=== PATIENT | male | born 1970 | race Caucasian/White ===

== ENCOUNTER → 2017-12-25 | Outpatient (CLI) | payer OTHER ==
[~2017-12-25] MED LIST: ALBU8.5H2 IH; Atorvastatin Calcium PO; DEXL60CA PO; DULO60CA6 PO; ESOM20CA PO; ETOD500T2 PO; FENO145T20 PO; FLUT1DIS2 IH; LISD60CA PO; LISI10TA2 PO; MELO-195 PO; MELO-198 PO; NEXIUM 22.3 MG PO; NF-ESOM40C PO; OXYC-197 PO; PANT40TA2 PO; PREG100C PO; SUCR1TAB36 PO; TEMA30CA PO; TOPI25CA6 PO
== END ==
LOC: CARD 12:58
PROVIDERS: ATTEND Internal Medicine Cardiovascular Disease
DX: R07.89 Other chest pain (principal); R06.09 Other forms of dyspnea; I10 Essential (primary) hypertension; E78.5 Hyperlipidemia, unspecified; E66.9 Obesity, unspecified; I34.0 Nonrheumatic mitral (valve) insufficiency
CPT/HCPCS: 93306

== ENCOUNTER → 2019-03-09 | Outpatient (CLI) | payer OTHER ==
[~2019-03-09] MED LIST changes: -FENO145T20 PO; +FENO145T37 PO; -OXYC-197 PO; +OXYC1TAB87 PO
== END ==
LOC: CARD 10:11
PROVIDERS: ATTEND Physician Assistant
DX: R07.89 Other chest pain (principal); R06.09 Other forms of dyspnea; I10 Essential (primary) hypertension; E78.5 Hyperlipidemia, unspecified; K21.9 Gastro-esophageal reflux disease without esophagitis
CPT/HCPCS: 93225; 93226; 93306

== ENCOUNTER 2020-04-19 14:34 | Emergency (ER) | payer OTHER ==
[~2020-04-19] VITALS: Ht 180 cm; Wt 95.3 kg
[~2020-04-19 14:34] MED LIST changes: +FENO145T26 PO; -FENO145T37 PO
[2020-04-19 14:45] VITALS: BP 118/87
--- NOTE | 2020-04-19 15:00 | ED Upper Extremity ---
General Chief Complaint: Upper Extremity Stated Complaint: LEFT ARM INJ Nursing Triage Note: PT AMBULATES TO FT1 WITH C/O L ARM INJURY. PT REPORTS ON 04/13/20 WHILE LIFTING LUMBER, SHE FELT A "POP." PT REPORTS BRUISING ET SWELLING SINCE INJURY. A&OX4. Nursing Sepsis Screen: No Definite Risk Source: patient Exam Limitations: no limitations History of Present Illness Date Seen by Provider: Apr 19, 2020 Time Seen by Provider: 14:53 Initial Comments To ER with pain and bruising as well as swelling to the distal upper arm and most of the ulnar side of the forearm on the left. This began on 04/13 when he was lifting some lumber and felt a popping sensation near his elbow. Yesterday he again lifted and was supinating his hand when he noticed increased pain and subsequent bruising and swelling. Onset: just prior to arrival Severity: moderate Pain/Injury Location: left elbow, left forearm Method of Injury: other Modifying Factors: Worse With Movement Allergies and Home Medications Allergies Coded Allergies: No Known Drug Allergies (Unverified , 09/27/16) Home Medications Dexlansoprazole 60 Mg bp, 60 MG PO DAILY Prescribed by: INEZ ONEIL on 10/03/16 1011 Etodolac 500 Mg Tab.er.24h, 500 MG PO BID, (Reported) Fenofibrate Nanocrystallized 145 Mg Tablet, 145 MG PO DAILY, (Reported) Lisinopril 10 Mg Tablet, 10 MG PO DAILY, (Reported) Oxycodone HCl/Acetaminophen 1 Each Tablet, 1 EACH PO Q4H Prescribed by: INEZ ONEIL on 10/03/16 1011 Pantoprazole Sodium 40 Mg Tablet.dr, 40 MG PO DAILY, (Reported) Sucralfate 1 Gm Tablet, 1 GM PO QID Prescribed by: INEZ ONEIL on 10/03/16 1011 Topiramate 25 Mg Cap.sprink, 50 MG PO BID, (Reported) Patient Home Medication List Home Medication List Reviewed: Yes Review of Systems Constitutional: weight gain EENTM: see HPI Respiratory: no symptoms reported Cardiovascular: no symptoms reported Genitourinary: no symptoms reported Musculoskeletal: see HPI Skin: no symptoms reported Psychiatric/Neurological: No Symptoms Reported Past Bgdzkak-Vfgigs-Gnfhol Hx Patient Social History Alcohol Use: Denies Use Recreational Drug Use: No Smoking Status: Never a Smoker 2nd Hand Smoke Exposure: No Recent Foreign Travel: No Contact w/Someone Who Travel: No Recent Infectious Disease Expo: No Recent Hopitalizations: No Immunizations Up To Date Tetanus Booster (TDap): Unknown Date of Influenza Vaccine: Aug 10, 2015 Seasonal Allergies Seasonal Allergies: No Past Medical History Surgeries: Yes (LITHOTRIPSY/CYSTOSCOPY/URETERAL STENTS, ROTATOR CUFF) Bladder Surgery, Renal Respiratory: No Cardiac: Yes High Cholesterol, Hypertension Neurological: No Reproductive Disorders: No Sexually Transmitted Disease: No HIV/AIDS: No Kidney Stones Gastrointestinal: Yes Gastroesophageal Reflux, Diverticulosis, Esophagitis, Hiatal Hernia Musculoskeletal: Yes (PAIN IN KNEES AND FEET) Fibromyalgia Endocrine: No Loss of Vision: Denies Hearing Impairment: Denies Cancer: No Psychosocial: No Sleep Difficulties Integumentary: No Blood Disorders: No Adverse Reaction/Blood Tranf: No Family Medical History Gastroesophageal reflux disease 19 MOTHER G8 BROTHER Refl Physical Exam Vital Signs Vital Signs - First Documented 04/19/20 14:45 Temp 36.3 Pulse 90 Resp 18 B/P (MAP) 118/87 (97) Pulse Ox 98 O2 Delivery Room Air Capillary Refill : Less Than 3 Seconds Height, Weight, BMI Height: 5'11.00" Weight: 212lbs. 6.0oz. 96.274052mt; 29.00 BMI Method:Stated General Appearance: WD/WN, no apparent distress Neck: non-tender, full range of motion Cardiovascular: regular rate, rhythm, no edema Respiratory: no respiratory distress, no accessory muscle use Elbow/Forearm: Left, ecchymosis, swelling (increased pain with resisted supination and flexion at the elbow. ) Wrist: Yes normal inspection, Yes non-tender Neurologic/Psychiatric: alert, normal mood/affect, oriented x 3 Skin: normal color, warm/dry Progress/Results/Core Measures Results/Orders My Orders Orders - ELIEL RANKIN APRN Venous Upper Ext Lt (04/19/20 14:52) Vital Signs/I&O 04/19/20 14:45 Temp 36.3 Pulse 90 Resp 18 B/P (MAP) 118/87 (97) Pulse Ox 98 O2 Delivery Room Air Blood Pressure Mean: 97 Departure Impression Primary Impression: Tendinopathy of left elbow Additional Impression: Muscle tear Disposition: 01 HOME, SELF-CARE Condition: Stable Departure-Patient Inst. Decision time for Depature: 14:59 Referrals: GEORGIA GUTIERREZ MD (PCP/Family) Primary Care Physician LEAH RUIZ MD Patient Instructions: NO INSTRUCTIONS GIVEN Add. Discharge Instructions: Ice pack to the area. The medication as directed. Follow-up with Dr. Ruiz, call today to make an appointment to be seen later this week. All discharge instructions reviewed with patient and/or family. Voiced understanding. ELIEL RANKIN COMMERCIAL FRONT LOAD OPERATOR Apr 19, 2020 15:00
--- NOTE | 2020-04-19 15:43 | Diagnostic Imaging Report ---
PROCEDURE: US venous upper extremity left. TECHNIQUE: Multiple realtime grayscale images were obtained of left upper extremity in various projections. Additional spectral analysis and color Doppler duplex images were also obtained. INDICATION: Left arm injury with left arm pain. COMPARISON: None. FINDINGS: The deep veins of the left upper extremity (subclavian, jugular, axillary, and brachial veins) show no evidence of intraluminal thrombosis, with normal compressibility, color flow, and augmentation. The radial and ulnar veins appear patent as well. The superficial veins (basilic and cephalic veins) are patent. IMPRESSION: No deep venous thrombosis seen in the left upper extremity veins. Findings discussed with Melvin Evans APRN, by the data entry processor, following the exam. Dictated by: Dictated on workstation # [id number]
== END 2020-04-19 15:30 | disposition home or self-care (01) ==
LOC: EDUNIT# 14:34 → ER 14:37
DX: S56.912A Strain of unspecified muscles, fascia and tendons at forearm level, left arm, initial encounter (principal); M77.9 Enthesopathy, unspecified; I10 Essential (primary) hypertension; K21.0 Gastro-esophageal reflux disease with esophagitis; E78.00 Pure hypercholesterolemia, unspecified; X50.1XXA Overexertion from prolonged static or awkward postures, initial encounter
CPT/HCPCS: 93971; 99283; A4565

== ENCOUNTER 2021-06-17 10:40 | Day surgery (SDC) | payer OTHER ==
[~2021-06-17] VITALS: Ht 180 cm; Wt 100.0 kg
[~2021-06-17 10:40] MED LIST changes: -LISI10TA2 PO; +LISI10TA25 PO
[2021-06-17] MEDS ORDERED: morphine INJ 10 MG/ML 1ML (SYR OR VIAL) ONE (10:51)
[2021-06-17] MEDS ORDERED: morphine INJ 10 MG/ML 1ML (SYR OR VIAL) IV STA (10:52)
--- NOTE | 2021-06-17 10:55 | ED Chest Pain ---
General Stated Complaint: CHEST PAIN Source: patient Exam Limitations: no limitations History of Present Illness Date Seen by Provider: Jun 17, 2021 Time Seen by Provider: 10:53 Initial Comments To ER with reports of chest pain that began about 9 AM this morning. He awakened this morning not feeling well. He was noted by EMS upon their arrival about 1015 to be very diaphoretic. He was given 324 mg of aspirin and 1 sublingual nitroglycerin which dropped his blood pressure from 160 down to 110. He was then given 2 doses of fentanyl. Still reports chest tightness rated at 4 out of 10. No history of coronary disease. Does have a history of hypertension. reports that over the past 6 weeks he has had some exertional dyspnea and diaphoresis. Reportedly, his watch told him that his heart rate was 179 earlier this morning and he did feel as though it was beating very fast. Timing/Duration: changing over time Severity/Quality: moderate Location: central Radiation: no radiation Activities at Onset: none Modifying Factors: worse with rest ASA po MALT HOUSE SUPERVISOR: No NTG SL MALT HOUSE SUPERVISOR: No Associated Symptoms: shortness of breath Allergies and Home Medications Allergies Coded Allergies: No Known Drug Allergies (Unverified , 09/27/16) Home Medications Dexlansoprazole 60 Mg Cap.bp, 60 MG PO DAILY Prescribed by: INEZ ONEIL on 10/03/16 1011 Etodolac 500 Mg Tab.er.24h, 500 MG PO BID, (Reported) Fenofibrate Nanocrystallized 145 Mg Tablet, 145 MG PO DAILY, (Reported) Lisinopril 10 Mg Tablet, 10 MG PO DAILY, (Reported) Oxycodone HCl/Acetaminophen 1 Each Tablet, 1 EACH PO Q4H Prescribed by: INEZ ONEIL on 10/03/16 1011 Pantoprazole Sodium 40 Mg Tablet.dr, 40 MG PO DAILY, (Reported) Sucralfate 1 Gm Tablet, 1 GM PO QID Prescribed by: INEZ ONEIL on 10/03/16 1011 Topiramate 25 Mg Cap.sprink, 50 MG PO BID, (Reported) Patient Home Medication List Home Medication List Reviewed: Yes Review of Systems Review of Systems Constitutional: see HPI EENTM: No Symptoms Reported Respiratory: No Symptoms Reported Cardiovascular: See HPI, Chest Pain Gastrointestinal: No Symptoms Reported Genitourinary: No Symptoms Reported Musculoskeletal: no symptoms reported Skin: no symptoms reported Psychiatric/Neurological: No Symptoms Reported Endocrine: No Symptoms Reported Hematologic/Lymphatic: No Symptoms Reported Past Rlgfydu-Bhvomq-Tdzqfo Hx Immunizations Up To Date Tetanus Booster (TDap): Unknown Seasonal Allergies Seasonal Allergies: No Past Medical History Surgeries: Yes (LITHOTRIPSY/CYSTOSCOPY/URETERAL STENTS, ROTATOR CUFF) Bladder Surgery, Renal Respiratory: No Cardiac: Yes High Cholesterol, Hypertension Neurological: No Reproductive Disorders: No Sexually Transmitted Disease: No HIV/AIDS: No Kidney Stones Gastrointestinal: Yes Gastroesophageal Reflux, Diverticulosis, Esophagitis, Hiatal Hernia Musculoskeletal: Yes (PAIN IN KNEES AND FEET) Fibromyalgia Endocrine: No Loss of Vision: Denies Hearing Impairment: Denies Cancer: No Psychosocial: No Sleep Difficulties Integumentary: No Blood Disorders: No Adverse Reaction/Blood Tranf: No Family Medical History Gastroesophageal reflux disease 19 MOTHER G8 BROTHER Refl Physical Exam Vital Signs Vital Signs - First Documented Capillary Refill : Height, Weight, BMI Height: 5'11.00" Weight: 212lbs. 6.0oz. 96.660249ji; 29.00 BMI Method:Stated General Appearance: No Apparent Distress, WD/WN, Other (Alert and oriented very diaphoretic. Heart rate 115 sinus. Blood pressure 140/90.) Respiratory: No Accessory Muscle Use, No Respiratory Distress Gastrointestinal: Normal Bowel Sounds, Non Tender, Soft Extremity: Normal Capillary Refill, Normal Inspection Neurologic/Psychiatric: Alert, Oriented x3 Skin: Normal Color, Warm/Dry Progress/Results/Core Measures Results/Orders Lab Results Laboratory Tests Test 06/17/21 10:40 06/17/21 11:10 Range/Units White Blood Count 6.7 4.3-11.0 10^3/uL Red Blood Count 5.72 H 4.30-5.52 10^6/uL Hemoglobin 17.0 13.3-17.7 g/dL Hematocrit 49 40-54 % Mean Corpuscular Volume 85 80-99 fL Mean Corpuscular Hemoglobin 30 25-34 pg Mean Corpuscular Hemoglobin Concent 35 32-36 g/dL Red Cell Distribution Width 15.2 H 10.0-14.5 % Platelet Count 298 130-400 10^3/uL Mean Platelet Volume 10.1 9.0-12.2 fL Immature Granulocyte % (Auto) 0 % Neutrophils (%) (Auto) 66 42-75 % Lymphocytes (%) (Auto) 24 12-44 % Monocytes (%) (Auto) 8 0-12 % Eosinophils (%) (Auto) 1 0-10 % Basophils (%) (Auto) 0 0-10 % Neutrophils # (Auto) 4.5 1.8-7.8 10^3/uL Lymphocytes # (Auto) 1.6 1.0-4.0 10^3/uL Monocytes # (Auto) 0.5 0.0-1.0 10^3/uL Eosinophils # (Auto) 0.1 0.0-0.3 10^3/uL Basophils # (Auto) 0.0 0.0-0.1 10^3/uL Immature Granulocyte # (Auto) 0.0 0.0-0.1 10^3/uL Sodium Level 141 135-145 MMOL/L Potassium Level 3.6 3.6-5.0 MMOL/L Chloride Level 107 98-107 MMOL/L Carbon Dioxide Level 17 L 21-32 MMOL/L Anion Gap 17 H 5-14 MMOL/L Blood Urea Nitrogen 25 H 7-18 MG/DL Creatinine 1.33 H 0.60-1.30 MG/DL Estimat Glomerular Filtration Rate 56 BUN/Creatinine Ratio 19 Glucose Level 111 H 70-105 MG/DL Calcium Level 10.6 H 8.5-10.1 MG/DL Corrected Calcium 8.5-10.1 MG/DL Magnesium Level 2.1 1.6-2.4 MG/DL Total Bilirubin 0.4 0.1-1.0 MG/DL Aspartate Amino Transf (AST/SGOT) 38 H 5-34 U/L Alanine Aminotransferase (ALT/SGPT) 45 0-55 U/L Alkaline Phosphatase 67 40-136 U/L Myoglobin 95.1 H 10.0-92.0 NG/ML Troponin I < 0.028 <0.028 NG/ML Total Protein 8.5 H 6.4-8.2 GM/DL Albumin 4.9 H 3.2-4.5 GM/DL Prothrombin Time 13.8 12.2-14.7 SEC INR Comment 1.0 0.8-1.4 Activated Partial Thromboplast Time 26 24-35 SEC My Orders Orders - ELIEL RANKIN COOK LARDER Cbc With Automated Diff (06/17/21 10:52) Magnesium (06/17/21 10:52) Chest 1 View, Ap/Pa Only (06/17/21 10:52) Ekg Tracing (06/17/21 10:52) Comprehensive Metabolic Panel (06/17/21 10:52) Myoglobin Serum (06/17/21 10:52) Protime With Inr (06/17/21 10:52) Partial Thromboplastin Time (06/17/21 10:52) O2 (06/17/21 10:52) Monitor-Rhythm Ecg Trace Only (06/17/21 10:52) Lipid Panel (06/18/21 06:00) Ed Iv/Invasive Line Start (06/17/21 10:52) BNP (06/17/21 10:52) Fibrin Degradation Products (06/17/21 10:52) Troponin I (06/17/21 10:52) Morphine Injection (Morphine Injection (06/17/21 10:52) Nitro Drip 86122 Mcg/D5w (Nitroglycerin (06/17/21 11:30) Vital Signs/I&O 06/17/21 06/17/21 06/17/21 10:40 10:40 10:40 Temp 36.6 Pulse 130 Resp 20 B/P (MAP) 143/94 (110) Pulse Ox 97 97 O2 Delivery Nasal Cannula Nasal Cannula Nasal Cannula O2 Flow Rate 3.00 3.00 3.0 Departure Communication (Admissions) EKG shows sinus tach rate of 115, normal intervals no ectopy no ST elevation 1131-still having chest pain despite 2 doses of fentanyl, 1 dose of morphine 4 mg. His heart rate has fallen to 98. He currently rates his chest pressure that radiates into his jaw at 4 out of 10. Hemodynamically stable. Alert and oriented. Still diaphoretic. EKG is unremarkable and troponin is negative but his presentation is very concerning for an acute coronary syndrome. I spoke with Dr. Chun, we will take the patient to [facility]. I am starting a nit roglycerin drip in the meantime. Impression Primary Impression: Chest pain Disposition: ADMITTED INPATIENT Condition: Stable Admissions Decision to Admit Reason: Admit from ER (General) Decision to Admit/Date: Jun 17, 2021 Time/Decision to Admit Time: 11:32 Departure-Patient Inst. Referrals: SELF,GEORGIA GONZALEZ (PCP/Family) Primary Care Physician ELIEL RANKIN APRN Jun 17, 2021 10:55
[2021-06-17 10:59] LABS: BASOPHILS % (AUTO) 0 % (0-10); EOSINOPHILS # (AUTO) 0.1 10^3/uL (0.0-0.3); EOSINOPHILS % (AUTO) 1 % (0-10); HEMATOCRIT 49 % (40-54); LYMPHOCYTES # (AUTO) 1.6 10^3/uL (1.0-4.0); LYMPHOCYTES % (AUTO) 24 % (12-44); MEAN CORPUSCULAR HEMOGLOBIN 30 pg (25-34); MEAN CORPUSCULAR HGB CONC 35 g/dL (32-36); MEAN CORPUSCULAR VOLUME 85 fL (80-99); MEAN PLATELET VOLUME 10.1 fL (9.0-12.2); MONOCYTES # (AUTO) 0.5 10^3/uL (0.0-1.0); MONOCYTES % (AUTO) 8 % (0-12); NEUTROPHILS # (AUTO) 4.5 10^3/uL (1.8-7.8); NEUTROPHILS % (AUTO) 66 % (42-75); PLATELET COUNT 298 10^3/uL (130-400); WHITE BLOOD COUNT 6.7 10^3/uL (4.3-11.0)
[2021-06-17 11:08] LABS: ALBUMIN 4.9 GM/DL (3.2-4.5); CHLORIDE 107 MMOL/L (98-107); POTASSIUM 3.6 MMOL/L (3.6-5.0); SODIUM 141 MMOL/L (135-145)
[2021-06-17 11:10] LABS: CALCIUM 10.6 MG/DL (8.5-10.1)
[2021-06-17 11:11] LABS: GLUCOSE 111 MG/DL (70-105); TOTAL PROTEIN 8.5 GM/DL (6.4-8.2)
[2021-06-17 11:12] LABS: CARBON DIOXIDE 17 MMOL/L (21-32)
[2021-06-17 11:13] LABS: BILIRUBIN,TOTAL 0.4 MG/DL (0.1-1.0)
[2021-06-17 11:14] LABS: ALKALINE PHOSPHATASE 67 U/L (40-136); CREATININE SERUM 1.33 MG/DL (0.60-1.30); GFR ESTIMATED 56
[2021-06-17 11:16] LABS: BUN/CREATININE RATIO 19
[2021-06-17 11:17] LABS: ALANINE AMINOTRANSFERASE 45 U/L (0-55); MAGNESIUM 2.1 MG/DL (1.6-2.4)
--- NOTE | 2021-06-17 11:27 | Diagnostic Imaging Report ---
INDICATION: Chest pain. TIME OF EXAM: 11:07 AM Correlation is made with prior chest 12/29/2014. FINDINGS: The heart size is normal. The pulmonary vascularity is unremarkable. The lungs are clear. No infiltrate, effusion or pneumothorax is detected. IMPRESSION: No acute cardiopulmonary process is detected. Dictated by: Dictated on workstation # [id number]
[2021-06-17 11:29] LABS: PROTHROMBIN TIME PATIENT 13.8 SEC (12.2-14.7)
[2021-06-17] MEDS: NITRO DRIP 25000 MCG/D5W 250 ML IV SCH (11:47)
[2021-06-17] MEDS ORDERED: fentaNYL INJ 100 MCG/2 ML AMP ONE (12:10)
[2021-06-17] MEDS ORDERED: MIDAZOLAM 5 MG/5 ML (VERSED) VIAL ONE (12:11)
[2021-06-17] MEDS ORDERED: HEParin 1000 UNIT/ML (10ML VIAL) FOR BOLUS ONE (12:11)
[2021-06-17] MEDS ORDERED: NS IV 1000 ML 1,000 ML ONE (12:11)
[2021-06-17] MEDS ORDERED: LIDOCAINE 1% INJ 20 ML 20 ML VIAL ONE (12:11)
[2021-06-17] MEDS ORDERED: HEParin (CATH LAB) 2,000 ML IV ONE (12:11)
[2021-06-17] MEDS ORDERED: NITRO DRIP 25000 MCG/D5W 0 ML IV ONE (12:11)
--- NOTE | 2021-06-17 12:35 | Cardiac Procedure Note-CS/ASA ---
Pre-Procedure Note Pre-Op Procedure Note H&P Reviewed The H&P was reviewed, patient examined and no changes noted. Date H&P Reviewed: Jun 17, 2021 Time H&P Reviewed: 12:35 Conscious Sedation Pre-Proced Time 12:35 ASA Score 4 For ASA 3 and 4: Consider anesthesia and medical clearance. Also, for patients with a history of failed moderate sedation consider anesthesia. Airway Lungs Heart ASA score ASA 1: a normal healthy patient ASA 2: a patient with a mild systemic disease (mid diabetes, controlled hypertension, obesity ASA 3: a patient with a severe systemic disease that limits activity (angina, COPD, prior Myocardial infarction) ASA 4: a patient with an incapacitating disease that is a constant threat to life (CHF, renal failure) ASA 5: a moribund patient not expected to survive 24 hrs. (ruptured aneurysm) ASA 6: a declared brain- patient whose organs are being harvested. For emergent operations, add the letter E after the classification Mallampati Classification Grade 2 Sedation Plan Analgesia, Amnesia, Plan communicated to team members, Discussed options with patient/fam, Discussed risks with patient/fam The patient is an appropriate candidate to undergo the planned procedure, sedation, and anesthesia. The patient immediately re-assessed prior to indication. ANNAMARIE SIMMONS MD FACP FAC CCDS Jun 17, 2021 12:35
[2021-06-17] MEDS ORDERED: FAMOTIDINE 20 MG (PEPCID) TABLET PO ONE (13:00)
[2021-06-17] MEDS ORDERED: PANTOPRAZOLE 40 MG (PROTONIX) TAB PO ONE (13:00)
[2021-06-17] MEDS ORDERED: PATIENT MAY USE OWN MEDS, ALL PO SCH (13:00)
--- NOTE | 2021-06-17 13:07 | Cardiology History & Physical ---
HPI-Cardiology Cardiology H&P Date of Admission 06/17/21 Primary Care Physician Sam Barone MD Attending Physician Tommie Page MD MA FACP [facility] Consulting Physician PUNEET CC: Chest pain HPI: 51 yo man with sudden onset of chest pain, midsternal, pressure-like, radiating to the back, associated with diaphoresis, intermittently present for several weeks but much worse today. 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 Partial relief with s/l NTG in the ambulance. Continuing chest pain and diaphoresis and high suspicion of acute coronary syndrome led to urgent cardiac cath after all issues were reviewed with him and he provided informed consent Review of Systems-Cardiology Review of Systems Constitutional: As described under HPI Eyes: No vision change Ears/Nose/Throat: No ear discharge, No nasal drainage, No recent hearing loss Respiratory: As described under HPI Cardiovascular: As described under HPI Gastrointestinal: No diarrhea, No nausea, No vomiting Genitourinary: No dysuria, No hematuria, No urine frequency changes Musculoskeletal: No back pain, No joint pain Skin: No rash, No ulcerations Psychiatric/Neurological: No seizure, No focal weakness, No syncope Hematologic: No bleeding abnormalities IXY-Jnqlbg-Qrlzue Hx Patient Social History 2nd Hand Smoke Exposure: No Have you traveled recently?: No Alcohol Use?: No Pt feels they are or have been: No Immunizations Up To Date Tetanus Booster (TDap): Unknown Date of Influenza Vaccine: Aug 10, 2015 Past Medical History PMH As described under Assessment. Family Medical History Family History: Gastroesophageal reflux disease 19 MOTHER G8 BROTHER Refl Allergies and Home Medications Allergies Coded Allergies: No Known Drug Allergies (Unverified , 09/27/16) Home Medications Dexlansoprazole 60 Mg bp, 60 MG PO DAILY Prescribed by: INEZ ONEIL on 10/03/16 1011 Etodolac 500 Mg Tab.er.24h, 500 MG PO BID, (Reported) Fenofibrate Nanocrystallized 145 Mg Tablet, 145 MG PO DAILY, (Reported) Lisinopril 10 Mg Tablet, 10 MG PO DAILY, (Reported) Oxycodone HCl/Acetaminophen 1 Each Tablet, 1 EACH PO Q4H Prescribed by: INEZ ONEIL on 10/03/16 1011 Pantoprazole Sodium 40 Mg Silas.dr, 40 MG PO DAILY, (Reported) Sucralfate 1 Gm Tablet, 1 GM PO QID Prescribed by: INEZ ONEIL on 10/03/16 1011 Topiramate 25 Mg Cap.sprink, 50 MG PO BID, (Reported) Patient Home Medication List Home Medication List Reviewed: Yes Physical Exam-Cardiology Physical Exam Vital Signs/I&O 06/17/21 06/17/21 06/17/21 06/17/21 10:40 10:40 10:40 11:47 Temp 36.6 Pulse 130 96 Resp 20 B/P (MAP) 143/94 (110) 138/95 Pulse Ox 97 97 O2 Delivery Nasal Cannula Nasal Cannula Nasal Cannula O2 Flow Rate 3.00 3.00 3.0 06/17/21 12:22 Pulse 101 Resp 20 B/P (MAP) 128/81 Pulse Ox 97 Capillary Refill : Less Than 3 Seconds Constitutional: AAO x 3, well-developed, well-nourished HEENT: EOMI, hearing is well preserved; No xanthelasmas are seen Neck: carotid pulses are 2 + bilaterally, with good upstrokes Respiratory: No accessory muscle use; other (good, bilateral air entry) Cardiovascular: regular rate-rhythm, S1 and S2, systolic murmur (soft MASON at card base) Gastrointestinal: No tender; soft; No guarding, No rebound; audible bowel sounds Extremities: No clubbing, No cyanosis, No significant edema Neurologic/Psychiatric: oriented x 3, other (moves all limbs equally) Skin: No rash on exposed areas, No ulcerations on exposed areas Data Review Labs Laboratory Tests 06/17/21 10:40: White Blood Count 6.7, Red Blood Count 5.72H, Hemoglobin 17.0, Hematocrit 49, Mean Corpuscular Volume 85, Mean Corpuscular Hemoglobin 30, Mean Corpuscular Hemoglobin Concent 35, Red Cell Distribution Width 15.2H, Platelet Count 298, Mean Platelet Volume 10.1, Immature Granulocyte % (Auto) 0, Neutrophils (%) (Auto) 66, Lymphocytes (%) (Auto) 24, Monocytes (%) (Auto) 8, Eosinophils (%) (Auto) 1, Basophils (%) (Auto) 0, Neutrophils # (Auto) 4.5, Lymphocytes # (Auto) 1.6, Monocytes # (Auto) 0.5, Eosinophils # (Auto) 0.1, Basophils # (Auto) 0.0, Immature Granulocyte # (Auto) 0.0, Sodium Level 141, Potassium Level 3.6, Chloride Level 107, Carbon Dioxide Level 17L, Anion Gap 17H, Blood Urea Nitrogen 25H, Creatinine 1.33H, Estimat Glomerular Filtration Rate 56, BUN/Creatinine Ratio 19, Glucose Level 111H, Calcium Level 10.6H, Corrected Calcium , Magnesium Level 2.1, Total Bilirubin 0.4, Aspartate Amino Transf (AST/SGOT) 38H, Alanine Aminotransferase (ALT/SGPT) 45, Alkaline Phosphatase 67, Myoglobin 95.1H, Troponin I < 0.028, B-Type Natriuretic Peptide < 10.0, Total Protein 8.5H, Albumin 4.9H 06/17/21 11:10: Prothrombin Time 13.8, INR Comment 1.0, Activated Partial Thromboplast Time 26, D-Dimer 0.31 06/17/21 11:26: SARS-CoV-2 RNA (RT-PCR) Not Detected Laboratory Tests 06/17/21 10:40 A/P-Cardiology Assessment/Admission Diagnosis Chest pain suggestive of unstable angina at presentation, but shown to be non- cardiac after card cath of 06/17/21 - Card cath of 06/17/21: No significant CAD, somewhat sluggish cor flow, normal LVEDP, normal LVEF and wall motion Hypertension, by history Hyperlipidemia, by history Renal insufficiency of unknown chronicity Admission Status: Observation Discussion and Recomendations * I discussed his cath findings in detail with him and his * Medical consult with the Hospitalist Svlinda (Dr Alvarado) with whom I have already spoken earlier today * Continue iv fluids, given evidence of renal insuff (probably related to volume depletion) * Monitor labs Clinical Quality Measures AMI/AHF: ASA po Prior to arrival: TOMMIE Queen MD [facility] CCDS Jun 17, 2021 13:07
[2021-06-17] MEDS: NS IV 1000 ML 1,000 ML IV SCH (13:44)
[2021-06-17 16:44] VITALS: BP 119/86
[2021-06-17] MEDS ORDERED: IOHEXOL 350 MG/ML 100 ML (OMNIPAQUE 350) VIAL IV ONE (17:45)
[2021-06-17] MEDS ORDERED: HOLD METFORMIN - RECEIVED CONTRAST 20 ML VIAL IV SCH (17:45)
[2021-06-17] MEDS ORDERED: NS 100 ML (IVPB) BAG IV ONE (17:45)
--- NOTE | 2021-06-17 18:37 | Diagnostic Imaging Report ---
PROCEDURE: CT abdomen and pelvis without contrast. TECHNIQUE: Multiple contiguous axial images were obtained through the abdomen and pelvis without the use of intravenous contrast. Auto Exposure Controls were utilized during the CT exam to meet ALARA standards for radiation dose reduction. INDICATION: Chest and abdomen pain. COMPARISON: 08/30/2016. FINDINGS: The lungs are described in a separate report. The liver demonstrates no focal lesion. Cholecystectomy clips are noted. The spleen appears normal. The pancreas is unremarkable. The adrenal glands appear normal. There is contrast excreting from the kidneys but there is no hydronephrosis. No definite mass is seen. The urinary bladder is moderately distended and contrast-filled with no filling defect present. The bowel loops are nondistended without obstruction. There is moderate stool in the colon. No free fluid is seen in the abdomen. No free air is seen. The appendix is normal. No acute osseous abnormality is seen. There is moderate soft tissue edema in the right inguinal region. There may be a small hematoma measuring about 2 cm. IMPRESSION: 1. Moderate soft tissue edema in the right inguinal region. There may be a small associated hematoma. 2. Moderate stool in the colon. No bowel obstruction is seen. Dictated by: Dictated on workstation # [id number]
--- NOTE | 2021-06-17 18:39 | Diagnostic Imaging Report ---
PROCEDURE: CT angiography of the chest with contrast. TECHNIQUE: Multiple contiguous axial images were obtained through the chest after uneventful bolus administration of intravenous contrast. 3D reconstructed CTA MIP acquisitions were also performed. Auto Exposure Controls were utilized during the CT exam to meet ALARA standards for radiation dose reduction. INDICATION: Chest pain. Recent heart catheter. COMPARISON: 12/30/2014. FINDINGS: The heart is normal in size. There is no pericardial effusion. There is no mediastinal adenopathy. The aorta appears normal in caliber. The pulmonary arteries are diagnostic to the segmental level. No filling defect is seen to indicate a pulmonary embolus. There are airspace opacities in the medial right lower lobe with scattered groundglass opacities in the dependent lungs bilaterally. There is no pleural effusion or pneumothorax. No central endobronchial lesion is seen. No acute osseous abnormality is seen. Abdominal findings are described separately. IMPRESSION: 1. No pulmonary embolus. 2. Airspace and ground glass opacities in the dependent lungs bilaterally, may be due to infection or atelectasis. Dictated by: Dictated on workstation # [id number]
[2021-06-17 19:37] VITALS: BP 115/76
[2021-06-17] MEDS: FAMOTIDINE 20 MG (PEPCID) TABLET PO SCH (20:01)
[2021-06-17 20:55] LABS: AMPHETAMINE SCREEN, URINE POSITIVE (NEGATIVE); BARBITURATE SCREEN URINE NEGATIVE (NEGATIVE); BENZODIAZEPINES SCREEN URINE POSITIVE (NEGATIVE); CANNABINOID SCREEN, URINE NEGATIVE (NEGATIVE); COCAINE SCREEN URINE NEGATIVE (NEGATIVE); METHADONE STAT NEGATIVE (NEGATIVE); METHAMPHETAMINE SCREEN URINE S NEGATIVE (NEGATIVE); OPIATE SCREEN URINE POSITIVE (NEGATIVE); OXYCODONE STAT NEGATIVE (NEGATIVE); PROPOXYPHENE STAT NEGATIVE (NEGATIVE); TRICYCLIC ANTIDEPRESSANTS SCRE NEGATIVE (NEGATIVE)
--- NOTE | 2021-06-17 21:27 | Consultation - Hospitalist ---
HPI History of Present Illness: HPI/Chief Complaint Mark Snyder is a 51 year old male patient of [facility] Dr. Barone with PMH HTN, HLD, ADHD, fibromyalgia, who presented with chest pain. He was having chest pain radiating through to his back. It also radiated to his neck. He was also very diaphoretic. He has no history of coronary artery disease. He does not smoke. He occasionally drinks alcohol. He does not use illicit drugs. He was taken to the record label internship with concern for ACS. He was found to have normal coronary arteries. Upon my exam, his chest pain has resolved. He is having right leg numbness. His right groin was the access point for his cath. He has not had any fevers or chills. He denies shortness of breath and cough. Source: patient Exam Limitations: no limitations Date Seen 06/17/21 Attending Physician Tommie Page MD Facp Facc Ccds PCP Sam Barone MD Referring Physician Date of Admission Home Medications & Allergies Home Medications Reviewed patient Home Medication Reconciliation performed by pharmacy medication reconciliations outside plant technician and/or nursing. Patients Allergies have been reviewed. Allergies Allergies Coded Allergies No Known Drug Allergies ([id number]/1/16) Past Apgpthw-Iwtlrf-Guddad Hx Patient Social History Tobacco Use?: No Smoking Status: Never a Smoker Smokeless Tobacco Frequency: Never a User Use of E-Cig and/or Vaping dev: No Substance use?: No Alcohol Use?: Yes Alcohol type: Beer, Hard Liquor Alcohol Frequency: Couple times a week Pt feels they are or have been: No Immunizations Up To Date Date of Influenza Vaccine: Aug 10, 2015 First/Initial COVID19 Vaccinat: DECEMBER [address]: January Tetanus Booster (TDap): Less Than 5 Years Hepatitis A: No Hepatitis B: Yes Seasonal Allergies Seasonal Allergies: No Current Status Advance Directives: No Communicates: Verbally Primary Language: Turkmen Preferred Spoken Language: Turkmen Is interpretation needed?: No Sensory deficits: Vision impairment, Hearing impairment Implanted or Applied Medical D: None Past Medical History Surgeries: Bladder Surgery, Renal High Cholesterol, Hypertension Sexually Transmitted Disease: No HIV/AIDS: No Kidney Stones Gastroesophageal Reflux, Diverticulosis, Esophagitis, Hiatal Hernia Fibromyalgia Loss of Vision: Denies Hearing Impairment: Denies Sleep Difficulties Blood Disorders: No Adverse Reaction/Blood Tranf: No Family Medical History Gastroesophageal reflux disease 17 MOTHER G8 BROTHER Refl Review of Systems Constitutional: no symptoms reported EENTM: no symptoms reported Respiratory: no symptoms reported Cardiovascular: chest pain Gastrointestinal: no symptoms reported Genitourinary: no symptoms reported Musculoskeletal: back pain Skin: no symptoms reported Psychiatric/Neurological: No Symptoms Reported Physical Exam Physical Exam Vital Signs Vital Signs - First Documented Capillary Refill : Less Than 3 Seconds Height, Weight, BMI Height: 5'11.00" Weight: 212lbs. 6.0oz. 96.523250gm; 29.00 BMI Method:Stated General Appearance: No Apparent Distress, WD/WN, Anxious HEENT: PERRL/EOMI, Pharynx Normal Neck: Normal Inspection, Supple Respiratory: Lungs Clear, Normal Breath Sounds, No Respiratory Distress Cardiovascular: Regular Rate, Rhythm, No Edema, No Murmur Gastrointestinal: Normal Bowel Sounds, Soft, Tenderness (epigastric), Other (RUQ tenderness, positive Mota sign) Extremity: Normal Capillary Refill, Normal Inspection, Non Tender, Pedal Edema Neurologic/Psychiatric: Alert, Oriented x3, No Motor/Sensory Deficits Skin: Normal Color, Warm/Dry Results Results/Procedures Labs Laboratory Tests 06/17/21 10:40 Patient resulted labs reviewed. Imaging: Reviewed Imaging Films, Reviewed Imaging Report Assessment/Plan Assessment and Plan Assess & Plan/Chief Complaint Chest pain Left heart cath normal Non-cardiac chest pain COVID negative Echo ordered CT Chest ordered Epigastric pain LFTs normal Add on lipase CT Abdomen Protonix GEORGI vs CKD IV fluids Monitor HTN HLD Fibromyalgia ADHD Hold home meds Diagnosis/Problems Diagnosis/Problems (1) Epigastric pain Status: Acute (2) Chest pain Status: Acute Clinical Quality Measures AMI/AHF: ASA po Prior to arrival: JUSTINO Sequeira MD Jun 17, 2021 21:27
[2021-06-18] MEDS: NS IV 1000 ML 1,000 ML IV SCH ×2 (00:04→09:55)
[2021-06-18 00:10] VITALS: BP 116/75
[2021-06-18 02:12] VITALS: BP 116/75
[2021-06-18 04:11] VITALS: BP 109/76
[2021-06-18 04:19] LABS: BASOPHILS % (AUTO) 1 % (0-10); EOSINOPHILS # (AUTO) 0.2 10^3/uL (0.0-0.3); EOSINOPHILS % (AUTO) 3 % (0-10); HEMATOCRIT 45 % (40-54); HEMOGLOBIN 14.4 g/dL (13.3-17.7); LYMPHOCYTES # (AUTO) 1.2 10^3/uL (1.0-4.0); LYMPHOCYTES % (AUTO) 24 % (12-44); MEAN CORPUSCULAR HEMOGLOBIN 29 pg (25-34); MEAN CORPUSCULAR HGB CONC 32 g/dL (32-36); MEAN CORPUSCULAR VOLUME 91 fL (80-99); MEAN PLATELET VOLUME 10.5 fL (9.0-12.2); MONOCYTES # (AUTO) 0.5 10^3/uL (0.0-1.0); MONOCYTES % (AUTO) 10 % (0-12); NEUTROPHILS # (AUTO) 3.3 10^3/uL (1.8-7.8); NEUTROPHILS % (AUTO) 62 % (42-75); PLATELET COUNT 201 10^3/uL (130-400); WHITE BLOOD COUNT 5.2 10^3/uL (4.3-11.0)
[2021-06-18 04:35] LABS: ALBUMIN 3.8 GM/DL (3.2-4.5)
[2021-06-18 04:38] LABS: TOTAL PROTEIN 6.3 GM/DL (6.4-8.2)
[2021-06-18 04:39] LABS: BILIRUBIN,TOTAL 0.4 MG/DL (0.1-1.0)
[2021-06-18 04:41] LABS: CREATININE SERUM 0.88 MG/DL (0.60-1.30)
[2021-06-18 07:53] VITALS: BP 106/68
[2021-06-18] MEDS: NITRO DRIP 25000 MCG/D5W 250 ML IV SCH (07:58)
[2021-06-18] MEDS ORDERED: polyethylene glycoL POWDER 17 GM (MIRALAX) PACK PO SCH (09:00)
[2021-06-18] MEDS ORDERED: PANTOPRAZOLE 40 MG (PROTONIX) TAB PO SCH (09:00)
[2021-06-18] MEDS ORDERED: DOCUSATE SODIUM 100 MG (COLACE) CAP PO SCH (09:00)
[2021-06-18] MEDS ORDERED: SENNA W/DOCUSATE (SENOKOT S) TABLET PO SCH (09:00)
[2021-06-18] MEDS: FAMOTIDINE 20 MG (PEPCID) TABLET PO SCH (09:43)
[2021-06-18] MEDS ORDERED: SUCRALFATE 1 GM (CARAFATE) TAB PO SCH (11:00)
[2021-06-18] MEDS ORDERED: ACETAMINOPHEN 325 MG TABLET ONE (11:27)
[2021-06-18] MEDS ORDERED: ACETAMINOPHEN 325 MG TABLET PO ONE (11:30)
[2021-06-18 11:50] VITALS: BP 111/70
--- NOTE | 2021-06-18 14:51 | Progress Note - Cardiology ---
Cardiology SOAP Progress Note Subjective: No cp or palp or syncope No shortness of breath No n/v/d No groin or leg numbness, discomfort, or discoloration Feels well Objective: I&O/Vital Signs 06/18/21 06/18/21 06/18/21 06/18/21 04:11 07:00 07:53 09:00 Temp 36.1 36.4 Pulse 63 61 75 Resp 16 22 B/P (MAP) 109/76 (87) 106/68 (81) Pulse Ox 95 98 O2 Delivery Room Air Room Air 06/18/21 06/18/21 11:50 13:00 Temp 36.2 Pulse 70 63 Resp 16 B/P (MAP) 111/70 (84) Pulse Ox 96 O2 Delivery Room Air 06/18/21 00:00 Intake Total 1800 ml Balance 1800 ml Weight (Pounds): 212 Weight (Ounces): 6.0 Weight (Calculated Kilograms): 96.590021 Condition: DP/PT pulses palpable Device Insertion Site: without hematoma Bruising: mild bruising Constitutional: AAO x 3, well-developed, well-nourished Respiratory: No accessory muscle use; other (good, bilateral air entry) Cardiovascular: regular rate-rhythm, S1 and S2, systolic murmur (soft MASON at card base) Gastrointestional: No tender; soft; No guarding, No rebound; audible bowel sounds Extremities: No clubbing, No cyanosis, No significant edema Neurologic/Psychiatric: oriented x 3, other (moves all limbs equally) Skin: No rash on exposed areas, No ulcerations on exposed areas Results/Procedures: Labs Laboratory Tests 06/17/21 20:23: Urine Opiates Screen POSITIVEH, Urine Oxycodone Screen NEGATIVE, Urine Methadone Screen NEGATIVE, Urine Propoxyphene Screen NEGATIVE, Urine Barbiturates Screen NEGATIVE, Ur Tricyclic Antidepressants Screen NEGATIVE, Urine Phencyclidine Screen NEGATIVE, Urine Amphetamines Screen POSITIVEH, Urine Methamphetamines Screen NEGATIVE, Urine Benzodiazepines Screen POSITIVEH, Urine Cocaine Screen NEGATIVE, Urine Cannabinoids Screen NEGATIVE 06/18/21 04:00: White Blood Count 5.2, Red Blood Count 4.94, Hemoglobin 14.4, Hematocrit 45, Mean Corpuscular Volume 91, Mean Corpuscular Hemoglobin 29, Mean Corpuscular Hemoglobin Concent 32, Red Cell Distribution Width 15.5H, Platelet Count 201, Mean Platelet Volume 10.5, Immature Granulocyte % (Auto) 0, Neutrophils (%) (Auto) 62, Lymphocytes (%) (Auto) 24, Monocytes (%) (Auto) 10, Eosinophils (%) (Auto) 3, Basophils (%) (Auto) 1, Neutrophils # (Auto) 3.3, Lymphocytes # (Auto) 1.2, Monocytes # (Auto) 0.5, Eosinophils # (Auto) 0.2, Basophils # (Auto) 0.0, Immature Granulocyte # (Auto) 0.0, Sodium Level 138, Potassium Level 4.0, Chloride Level 108H, Carbon Dioxide Level 21, Anion Gap 9, Blood Urea Nitrogen 20H, Creatinine 0.88, Estimat Glomerular Filtration Rate 91, BUN/Creatinine Ratio 23, Glucose Level 95, Calcium Level 9.0, Corrected Calcium 9.2, Magnesium Level 2.0, Total Bilirubin 0.4, Aspartate Amino Transf (AST/SGOT) 25, Alanine Aminotransferase (ALT/SGPT) 34, Alkaline Phosphatase 54, Total Protein 6.3L, Albumin 3.8, Triglycerides Level 170H, Cholesterol Level 225H, LDL Cholesterol Direct 168H, VLDL Cholesterol 34, HDL Cholesterol 40, Thyroid Stimulating Hormone (TSH) 2.66 Laboratory Tests 06/17/21 10:40 06/18/21 04:00 A/P: Assessment: Chest pain suggestive of unstable angina at presentation, but shown to be non- cardiac after card cath of 06/17/21 - Card cath of 06/17/21: No significant CAD, somewhat sluggish cor flow, normal LVEDP, normal LVEF and wall motion Hypertension, by history Hyperlipidemia, by history Renal insufficiency, likely due to volume depletion, resolved after hydration H/o hiatal hernia and h/o cholecystectomy, followed by Dr Ordaz, per patient report Plan: * I again discussed his cath findings with him and his * I spoke with Dr Alvarado on the phone. He has completed his w/u for noncardiac cp, and recommended antacid meds and f/u with Dr Ordaz for endoscopy * We recommend outpt cardiac f/u * Questions answered Clinical Quality Measures AMI/AHF: ASA po Prior to arrival: ANNAMARIE Queen MD [facility] CCDS Jun 18, 2021 14:51
[2021-06-18] MEDS ORDERED: CLON1TAB13 PO (15:00)
[2021-06-18] MEDS ORDERED: ZOLP10TA PO (15:00)
[2021-06-18] MEDS ORDERED: AMPH30TA2 PO (15:01)
[2021-06-18] MEDS ORDERED: DULO60CA6 PO (15:01)
[2021-06-18] MEDS ORDERED: BUPR-42 PO (15:02)
[2021-06-18] MEDS ORDERED: NABU-95 PO (15:03)
[2021-06-18] MEDS ORDERED: PREG150C PO (15:03)
[2021-06-18] MEDS ORDERED: METO50TA15 PO (15:04)
[2021-06-18] MEDS ORDERED: ROSU20TA2 PO (15:04)
[2021-06-18] MEDS ORDERED: PANT40TA2 PO (15:11)
[2021-06-18] MEDS ORDERED: SUCR1TAB36 PO (15:11)
--- NOTE | 2021-06-18 15:18 | Progress Note - Hospitalist ---
Subjective HPI/CC On Admission Date Seen by Provider: Jun 18, 2021 Time Seen by Provider: 10:45 Mark Snyder is a 51 year old male patient of [facility] Dr. Barone with PMH HTN, HLD, ADHD, fibromyalgia, who presented with chest pain. He was having chest pain radiating through to his back. It also radiated to his neck. He was also very d iaphoretic. He has no history of coronary artery disease. He does not smoke. He occasionally drinks alcohol. He does not use illicit drugs. He was taken to the lift slab operator with concern for ACS. He was found to have normal coronary arteries. Upon my exam, his chest pain has resolved. He is having right leg numbness. His right groin was the access point for his cath. He has not had any fevers or chills. He denies shortness of breath and cough. Subjective/Events-last exam He still has some epigastric discomfort. He is not having any chest pain. He denies trouble breathing. He was able to eat and drink this morning without issue. Objective Exam Vital Signs Vital Signs Date Time Temp Pulse Resp B/P (MAP) Pulse Ox O2 Delivery O2 Flow Rate FiO2 06/18/21 13:00 63 06/18/21 11:50 36.2 16 111/70 (84) 96 Room Air 06/17/21 10:40 3.0 Capillary Refill : Less Than 3 Seconds General Appearance: No Apparent Distress, WD/WN Neck: Normal Inspection, Supple Respiratory: Lungs Clear, Normal Breath Sounds, No Respiratory Distress Cardiovascular: Regular Rate, Rhythm, No Edema, No Murmur Gastrointestinal: Normal Bowel Sounds, Soft, Tenderness (epigastric) Extremity: Normal Inspection, Non Tender, No Pedal Edema Neurologic/Psychiatric: Alert, Oriented x3, No Motor/Sensory Deficits, Normal Mood/Affect Skin: Normal Color, Warm/Dry Results/Procedures Lab Laboratory Tests 06/18/21 04:00 Patient resulted labs reviewed. Imaging: Reviewed Imaging Films, Reviewed Imaging Report Assessment/Plan Assessment and Plan Assess & Plan/Chief Complaint Chest pain Left heart cath normal Non-cardiac chest pain COVID negative Echo with concentric hypertrophy, normal EF CT Chest with bibasilar atelectasis Epigastric pain LFTs normal Lipase normal CT Abdomen with moderate stool burden Protonix twice daily Sucralfate Follow up with Dr. Ordaz, likely repeat EGD GEORGI Resolved HTN HLD Fibromyalgia ADHD Resume home meds on discharge Diagnosis/Problems Diagnosis/Problems (1) Epigastric pain Status: Acute (2) Chest pain Status: Acute (3) GERD (gastroesophageal reflux disease) Status: Acute Qualifiers: Esophagitis presence: esophagitis presence not specified Qualified Codes: K21.9 - Gastro-esophageal reflux disease without esophagitis Clinical Quality Measures AMI/AHF: ASA po Prior to arrival: No JUSTINO SOLIZ MD Jun 18, 2021 15:18
[2021-06-18] MEDS ORDERED: FAMO-119 PO (15:26)
[2021-06-18] MEDS ORDERED: METO50TA7 PO (15:26)
[2021-06-18 15:27] VITALS: BP 120/77
--- NOTE | 2021-06-18 15:27 | Discharge Inst-Cardiology ---
Discharge Inst-Cardiac Discharge Medications New Medications: Famotidine (Pepcid) 20 Mg Tablet 20 MG PO BID, #60 TAB 1 Refill Metoprolol Succinate (Metoprolol Succinate) 50 Mg Tab.er.24h 50 MG PO DAILY for 30 Days, #30 TAB 1 Refill Continued Medications: Bupropion HCl (Wellbutrin Xl) 150 Mg Tab.er.24h 150 MG PO BID for Smoking Cessation, TAB Clonazepam (Clonazepam) 1 Mg Tablet 1 MG PO PRN for SLEEP, TAB Dextroamphetamine/Amphetamine (Adderall 30 mg Tablet) 30 Mg Tablet 30 MG PO BID for 7 Days, TAB Duloxetine HCl (Cymbalta) 60 Mg Capsule.dr 60 MG PO BID, CAP Nabumetone (Nabumetone) 750 Mg Tablet 750 MG PO BID, TAB Pantoprazole Sodium (Protonix) 40 Mg Tablet.dr 40 MG PO DAILY for 30 Days, #60 TAB 0 Refills (This prescription has been renewed) Pregabalin (Lyrica) 150 Mg Capsule 150 MG PO BID, CAP Rosuvastatin Calcium (Crestor) 20 Mg Tablet 20 MG PO BID, TAB Sucralfate (Carafate) 1 Gm Tablet 1 GM PO QID for 30 Days, #120 TAB (This prescription has been renewed) Zolpidem Tartrate (Ambien) 10 Mg Tablet 10 MG PO PRN for SLEEP, TAB Discontinued Medications: Metoprolol Tartrate (Metoprolol Tartrate) 50 Mg Tablet 50 MG PO DAILY, TAB ANNAMARIE SIMMONS MD [facility] Jun 18, 2021 15:27
--- NOTE | 2021-06-18 15:27 | Discharge Inst-Post CATH ---
Discharge Inst-CATH/EP Post Cardiac Cath/EP D/C Inst Follow Up/Plan F/u with Dr East in 2-3 weeks ACTIVITY * Go Home directly and rest. * Limit activity of the leg (or wrist if it was used) for 7 days including aerobics, swimming, jogging, bicycling, etc. * Restrict stair-climbing for 7 days if possible, if not, climb up with your non-cath leg, then bring together on the same step. * Avoid lifting, pushing, pulling or excessive movement of the affected e xtremity for 7 days. * Customary sexual activity may be resumed after 2 days-use caution not to use a position that strains or causes pain to the affected extremity. * No driving for 24 hours. * NO SMOKING. * Avoid straining for bowel movements for 7 days. * Gentle walking on level ground is allowed. * Returning to work will depend on the type of procedure and the results. Your doctor will discuss this with you. CALL YOUR DOCTOR FOR ANY OF THE FOLLOWING: *If bleeding from the puncture site occurs- Apply gentle pressure to site with clean cloth and call your doctor or EMS. * If a knot or lump forms under the skin, increases in size, or causes pain. * If bruising appears to be worsening or moving further down your leg instead of disappearing. * Temperature above 101 F. CARE OF YOUR GROIN INCISION; * Bruising or purple discoloration of the skin near the puncture site is common. * You may shower only, no bathtub bathing for 5 days. Be careful to avoid slipping as your leg may feel stiff. * If a closure device was used on your femoral artery, please see the attached guide regarding care of the device and your leg. * Leave dressing on FOR 24 hours. CARE OF YOUR WRIST INCISION; * Bruising or purple discoloration of the skin near the puncture site is common. * You may shower. * DO NOT submerge wrist. * Leave dressing on FOR 24 hours. ANNAMARIE SIMMONS MD [facility] CCDS Jun 18, 2021 15:27
--- NOTE | 2021-06-18 15:30 | Cardiology Discharge Summary ---
Diagnosis/Chief Complaint Date of Admission 06/17/21 Date of Discharge 06/18/21 Final/Discharge Diagnosis Chest pain suggestive of unstable angina at presentation, but shown to be non- cardiac after card cath of 06/17/21 - Card cath of 06/17/21: No significant CAD, somewhat sluggish cor flow, normal LVEDP, normal LVEF and wall motion Hypertension, by history Hyperlipidemia, by history Renal insufficiency, likely due to volume depletion, resolved after hydration H/o hiatal hernia and h/o cholecystectomy, followed by Dr Ordaz, per patient report Chief Complaint/HPI Chief Complaint/HPI CC: Chest pain HPI: 51 yo man with sudden onset of chest pain, midsternal, pressure-like, radiating to the back, associated with diaphoresis, intermittently present for several weeks but much worse today. 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 Partial relief with s/l NTG in the ambulance. Continuing chest pain and diaphoresis and high suspicion of acute coronary syndrome led to urgent cardiac cath after all issues were reviewed with him and he provided informed consent Please see my progress note of today's date (06/18/21) for hospital course and condition at discharge He has established cardiac f/u with Dr East. We have asked him to see Dr East in 2-3 weeks Discharge Summary Discussion & Recommendations Home Medications Reviewed patient Home Medication Reconciliation performed by pharmacy medication reconciliations registered respiratory technician and/or nursing. Patients Allergies have been reviewed. Discharge Home Medications: Reviewed and agree with Discharge Medication list on patient's Discharge Instruction sheet Instructions to patient/family F/u with Dr East in 2-3 weeks Clinical Quality Measures AMI/AHF: ASA po Prior to arrival: ANNAMARIE Queen MD FACP [facility] CCDS Jun 18, 2021 15:30
[2021-06-21] MEDS ORDERED: OMEP20TA7 PO (10:09)
--- NOTE | 2021-06-27 21:20 | CARDIAC CATHETERIZATION ---
DATE OF SERVICE: 06/17/2021 CARDIAC CATHETERIZATION REPORT INDICATION FOR PROCEDURE: The patient is a 51-year-old man with multiple coronary artery disease risk factors, who presented with chest pain suggestive of acute coronary syndrome. Urgent cardiac catheterization was carried out after having obtained an informed consent. DESCRIPTION OF PROCEDURE: He was brought to the cardiac catheterization laboratory. Right groin was prepared and draped in the usual sterile fashion. Lidocaine 1% was used for local anesthesia. Modified Seldinger technique was used to advance a 5-Kyrgyz sheath in the right femoral artery, 5-Kyrgyz JL4 catheter for left coronary angiography, 5-Kyrgyz JR4 catheter for right coronary angiography, 5-Kyrgyz pigtail catheter was used for left heart catheterization and left ventricular angiography. A 5-Kyr[place] pigtail catheter was also used to carry out aortic arch angiography. Angiography of the right femoral artery was carried with a sheath and Mynx was used to achieve hemostasis. HEMODYNAMICS: Left ventricular end-diastolic pressure following the coronary angiography was 10 mmHg. There was no significant pressure gradient on pullback across the aortic valve. CORONARY ANGIOGRAPHY: Left main coronary artery, left anterior descending artery, left circumflex artery, and right coronary artery do not exhibit any angiographically significant obstructive disease. Right coronary artery is dominant. LEFT VENTRICULAR ANGIOGRAPHY: Left ventricular angiography was carried out in the right anterior oblique projection. Global left ventricular systolic function is normal with the hyperdynamic. Left ventricular ejection fraction is estimated to be 65% to 70%. AORTIC ARCH ANGIOGRAPHY: Aortic arch angiography did not indicate any aneurysm or dissection of the aortic arch or the descending thoracic aorta. Neck arteries are identified and to the extent visualized, do not exhibit significant disease. CONCLUSIONS: 1. No angiographically significant coronary artery disease. 2. Normal global left ventricular systolic function with an ejection fraction of 65% to 70%. 3. No evidence of transverse aorta or descending thoracic aortic aneurysm or dissection. Job ID: [id number] DocumentID: [id number] Dictated Date: 06/27/2021 17:44:10 Lathe Scalper Operator Date: 06/27/2021 21:19:47 Dictated By: ANNAMARIE SIMMONS MD, MA, FACP, FACC,
== END 2021-06-18 15:00 | disposition home or self-care (01) ==
LOC: EDUNIT# 10:41 → ER 10:44 → CATH 12:03 → CSD 13:40 → CATH 06-18 15:00
PROVIDERS: ATTEND Internal Medicine Cardiovascular Disease
DX: R07.9 Chest pain, unspecified (principal); R00.0 Tachycardia, unspecified; I10 Essential (primary) hypertension; E78.00 Pure hypercholesterolemia, unspecified; M79.7 Fibromyalgia; K21.00 Gastro-esophageal reflux disease with esophagitis, without bleeding; E78.5 Hyperlipidemia, unspecified; N28.9 Disorder of kidney and ureter, unspecified; F90.9 Attention-deficit hyperactivity disorder, unspecified type; Z79.899 Other long term (current) drug therapy; Z79.1 Long term (current) use of non-steroidal anti-inflammatories (NSAID); Z79.891 Long term (current) use of opiate analgesic
CPT/HCPCS: 36221; 71045; 71275; 74176; 80053 ×2; 80061; 80306; 83690; 83735 ×2; 83874; 83880; 84443; 84484; 85025 ×2; 85379; 85610; 85730; 87636; 93005 ×2; 93041; 93306; 93458; 96365; 96375; 99285; C1760; C1894; 36415

== ENCOUNTER 2021-06-20 09:13 | Outpatient (CLI) | payer OTHER ==
[~2021-06-20] VITALS: Ht 180.3 cm; Wt 92.6 kg
[~2021-06-20 09:13] MED LIST changes: +AMPH30TA2 PO; +BUPR-42 PO; +CLON1TAB13 PO; +FAMO-119 PO; +METO50TA15 PO; +METO50TA7 PO; +NABU-95 PO; +PREG150C PO; +ROSU20TA2 PO; +ZOLP10TA PO
[2021-06-20] MEDS ORDERED: TEMA30CA PO (12:35)
[2021-06-20] MEDS ORDERED: ROSU10TA28 PO (12:35)
[2021-06-20] MEDS ORDERED: BUPR150T14 PO (12:35)
[2021-06-20] MEDS ORDERED: PANT40TA52 PO (12:35)
[2021-06-20] MEDS ORDERED: METO50TA7 PO (12:35)
[2021-06-20] MEDS ORDERED: SUCR1TAB36 PO (12:35)
[2021-06-21] MEDS ORDERED: OMEP20TA7 PO (10:09)
== END 2021-06-20 12:39 | disposition home or self-care (01) ==
LOC: PREOP 09:13
PROVIDERS: ATTEND Surgery
DX: Z01.818 Encounter for other preprocedural examination (principal)

== ENCOUNTER 2021-06-21 08:35 | Day surgery (SDC) | payer OTHER ==
[2021-06-21] VITALS (8 sets, daily range): BP systolic 124–141; BP diastolic 74–97
[~2021-06-21] VITALS: Ht 180.3 cm; Wt 92.6 kg
[~2021-06-21 08:35] MED LIST changes: +BUPR150T14 PO; +PANT40TA52 PO; +ROSU10TA28 PO
[2021-06-21] MEDS ORDERED: LACTATED RINGERS 1,000 ML IV STA (08:51)
[2021-06-21] MEDS ORDERED: HURRICAINE EXT TUBE (BENZOCAINE) XX PRN (09:00)
[2021-06-21] MEDS ORDERED: LIDOCAINE JELLY 2% 6 ML SYRINGE MM PRN (09:00)
[2021-06-21] MEDS ORDERED: LACTATED RINGERS 1,000 ML IV ONE (09:01)
[2021-06-21] MEDS ORDERED: proPOfol 200 MG/20 ML (DIPRIVAN) VIAL IV ONE (09:56)
[2021-06-21] MEDS ORDERED: MIDAZOLAM 2 MG/2 ML (VERSED) VIAL ONE (09:56)
--- NOTE | 2021-06-21 10:08 | Progress Note-Pre Operative ---
Pre-Operative Progress Note H&P Reviewed The H&P was reviewed, patient examined and no changes noted. Date Seen by Provider: Jun 21, 2021 Time Seen by Provider: :30 Date H&P Reviewed: Jun 21, 2021 Time H&P Reviewed: :30 Pre-Operative Diagnosis: GERD, chest pain INEZ ONEIL MD Jun 21, 2021 10:08
[2021-06-21] MEDS ORDERED: OMEP20TA7 PO (10:09)
--- NOTE | 2021-06-21 10:10 | Discharge Inst-Surgical ---
D/C Lap Instructions-KIDO New, Converted, or Re-Newed RX: RX on Chart Follow Up Activity as tolerated High Fiber Diet 25g or more per day Avoid Alcohol, Caffeine, Spicy [place] and Acid foods. Drink 64 fluid oz or more of fluids per day. Symptoms to Report: Fever over 101 degree F, Nausea/Vomiting If any problems/questions: Contact your physician or go to Emergency Room INEZ ONEIL MD Jun 21, 2021 10:10
[2021-06-21] MEDS ORDERED: ONDANSETRON 4 MG (ZOFRAN) ORAL DISSOLVE TAB PO PRN (10:15)
[2021-06-21] MEDS ORDERED: ONDANSETRON 4 MG/2 ML (SDV) Z0FRAN IVP PRN (10:15)
--- NOTE | 2021-06-21 14:23 | OPERATIVE REPORT ---
DATE OF SERVICE: 06/21/2021 ATTENDING PRIMARY CARE PHYSICIAN: Dr. Robbie Feliz. PREOPERATIVE DIAGNOSES: Gastroesophageal reflux disease, chest pain and diaphoresis. POSTOPERATIVE DIAGNOSES: Reflux esophagitis between stage II and III, moderate size hiatal hernia approximately 3 cm in size, moderate gastritis. PROCEDURE: EGD with biopsy. SURGEON: Inez Oneil MD. ANESTHESIA: Monitored anesthesia care. ESTIMATED BLOOD LOSS: Minimal. FINDINGS: Reflux esophagitis between stage II and III, moderate size hiatal hernia approximately 3 cm in size, moderate gastritis. DISPOSITION: The patient tolerated the procedure well. INDICATIONS: The patient is a 51-year-old male known to us. He has a longstanding history of peptic ulcer disease and gastroesophageal reflux disease. 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 This has interfered with the sleep-wake cycle for many years. He has been on Protonix for several years. He has a longstanding history of reflux and states that this has worsened. He had significant diaphoresis recently and presented to the Emergency Department where he underwent a full cardiac workup including cardiac catheterization, which did not show any significant coronary artery disease, cardiac enzymes were also normal. DESCRIPTION OF PROCEDURE: The patient was brought to the endoscopy suite, laid in left lateral decubitus position. After adequate IV pain and sedative medications and monitored anesthesia care, the mouthpiece was applied. The endoscope was placed in the mouth, visualizing the pharynx and hypopharyngeal region. Vocal cords, epiglottis and vallecula identified and appeared to be normal. The endoscope was then gently abated the esophageal opening and esophagus insufflated. The endoscope was then advanced through the first, second and third portion of esophagus at the level of the GE junction, a reflux esophagitis between stage II and III identified. This was also intrathoracic consistent with a hiatal hernia. No ulcers or strictures identified and a biopsy was taken with forceps with visualization of good hemostasis. The endoscope was then advanced into the stomach and endoscope retroflexed, visualizing a moderate size hiatal hernia approximately 2 to 3 cm in size. There was a moderate severity gastritis. No formal ulcerations, polyps, or any neoplasms. A biopsy was taken of the antrum to rule out H. pylori with visualization of good hemostasis. The endoscope was then advanced to the pylorus and the first and second portion of the duodenum, which appeared normal. The endoscope was slowly withdrawn while taking a second look and suctioning of residual air with no additional findings. The patient tolerated the procedure well. We will recommend the necessary lifestyle and diet accommodation including avoidance of alcohol and caffeinated beverages as well as spicy, greasy and acidic foods as well as to try to prevent eating late at night with a full stomach and avoidance of spicy, greasy and acidic foods. We will also have him take omeprazole 40 mg in addition to his Protonix daily. Job ID: [id number] DocumentID: [id number] Dictated Date: 06/21/2021 10:38:56 Employment Service Specialist Date: 06/21/2021 14:22:14 Dictated By: INEZ ONEIL MD
== END 2021-06-21 11:27 | disposition home or self-care (01) ==
LOC: ENDO 08:35
PROVIDERS: ATTEND Surgery
DX: K29.50 Unspecified chronic gastritis without bleeding (principal); K21.00 Gastro-esophageal reflux disease with esophagitis, without bleeding; Z79.899 Other long term (current) drug therapy; F32.9 Major depressive disorder, single episode, unspecified; Z87.11 Personal history of peptic ulcer disease; F41.9 Anxiety disorder, unspecified; I10 Essential (primary) hypertension; M79.7 Fibromyalgia

== ENCOUNTER 2022-08-24 10:44 | Emergency (ER) | payer OTHER ==
[~2022-08-24 10:44] MED LIST changes: +BUPR-105 PO; -BUPR150T14 PO; -DULO60CA6 PO; +DULO60CA7 PO; +OMEP20TA56 PO
[2022-08-24] MEDS ORDERED: fentaNYL INJ 100 MCG/2 ML AMP IVP STA ×2 (11:11→13:34)
[2022-08-24] MEDS ORDERED: KETOROLAC 30 MG/ML VIAL IVP STA (11:11)
[2022-08-24] MEDS ORDERED: NS IV 1000 ML 1,000 ML IV STA (11:11)
[2022-08-24] MEDS ORDERED: ONDANSETRON 4 MG/2 ML (SDV) Z0FRAN IVP ONE (11:15)
--- NOTE | 2022-08-24 11:19 | ED GU-Male ---
General Chief Complaint: - Reproductive Stated Complaint: KIDNEY STONES/ABD PAIN Source: patient Exam Limitations: no limitations History of Present Illness Date Seen by Provider: Aug 24, 2022 Time Seen by Provider: 11:06 Initial Comments Here with left flank pain and pain down to the left groin that has been going on since Saturday of this week, 4 days ago. Does have history of kidney stones. Seen by his primary care provider on Saturday and did UA dip which did not show protein. Pain worsened today. Has had some nausea with out vomiting. He owns a local caf. Denies any specific lifting injury although states that after the pain it started he was lifting something that made the pain worse. Denies dys uria. Has chronic diarrhea but denies blood in urine or stool. Timing/Duration: getting worse, changing over time, other (4 to 5 days) Severity/Quality: moderate, aching Location: right flank Radiation: groin (Right) Activities at Onset: none Modifying Factors: Worsens With Movement, Worsens With Palpation Associated Symptoms: No abdominal pain, No dysuria; nausea/vomiting Allergies and Home Medications Allergies Coded Allergies: No Known Drug Allergies (Verified , 06/21/21) Patient Home Medication List Home Medication List Reviewed: Yes Bupropion HCl (Bupropion HCl Sr) 150 Mg Tablet.er, 150 MG PO BID, (Reported) Entered as Reported by: JULIO CESAR PELLETIER on 06/20/21 1235 Clonazepam (Clonazepam) 1 Mg Tablet, 1 MG PO for SLEEP, (Reported) Entered as Reported by: CIARA MCCONNELL on 06/18/21 1500 Dextroamphetamine/Amphetamine (Adderall 30 mg Tablet) 30 Mg Tablet, 30 MG PO BID, (Reported) Entered as Reported by: CIARA MCCONNELL on 06/18/21 1501 Duloxetine HCl (Cymbalta) 60 Mg Capsule.dr, 60 MG PO BID, (Reported) Entered as Reported by: CIARA MCCONNELL on 06/18/21 1501 Metoprolol Succinate (Metoprolol Succinate) 50 Mg Tab.er.24h, 50 MG PO HS, (Reported) Entered as Reported by: JULIO CESAR PELLETIER on 06/20/21 1235 Nabumetone (Nabumetone) 750 Mg Tablet, 750 MG PO BID, (Reported) Entered as Reported by: CIARA MCCONNELL on 06/18/21 1503 Omeprazole (Omeprazole) 20 Mg Tablet.dr, 20 MG PO DAILY Prescribed by: INEZ ONEIL on 06/21/21 1009 Pantoprazole Sodium (Pantoprazole Sodium) 40 Mg Tablet.dr, 40 MG PO DAILY, (Reported) Entered as Reported by: JULIO CESAR PELLETIER on 06/20/21 1235 Pregabalin (Lyrica) 150 Mg Capsule, 150 MG PO BID, (Reported) Entered as Reported by: CIARA MCCONNELL on 06/18/21 1503 Rosuvastatin Calcium (Rosuvastatin Calcium) 10 Mg Tablet, 10 MG PO HS, (Reported) Entered as Reported by: JULIO CESAR PELLETIER on 06/20/21 1235 Sucralfate (Carafate) 1 Gm Tablet, 1 GM PO QID, (Reported) Entered as Reported by: JULIO CESAR PELLETIER on 06/20/21 1235 Temazepam (Temazepam) 30 Mg Capsule, 30 MG PO HS, (Reported) Entered as Reported by: JULIO CESAR PELLETIER on 06/20/21 1235 Zolpidem Tartrate (Ambien) 10 Mg Tablet, 10 MG PO for SLEEP, (Reported) Entered as Reported by: CIARA MCCONNELL on 06/18/21 1500 Review of Systems Review of Systems Constitutional: see HPI; No chills, No fever EENTM: No nose congestion, No throat pain Respiratory: No cough, No short of breath Cardiovascular: No chest pain, No edema Gastrointestinal: abdominal pain, nausea; No vomiting Genitourinary: denies dysuria, denies frequency; flank pain Musculoskeletal: no symptoms reported Skin: no symptoms reported Psychiatric/Neurological: No Symptoms Reported All Other Systemes Reviewed Negative Unless Noted: Yes Past Dgqgszk-Wykclr-Zsdkzc Hx Patient Social History Tobacco Use?: No Substance use?: No Alcohol Use?: Yes Alcohol Frequency: Rarely Pt feels they are or have been: No Immunizations Up To Date Tetanus Booster (TDap): Unknown Influenza Vaccine Up-to-Date: No; Not Current First/Initial COVID19 Vaccinat: YES Second COVID[address]: YES Seasonal Allergies Seasonal Allergies: No Past Medical History Surgery/Hospitalization HX: GERD, KIDNEY STONES, CYSTOSCOPY, ROTATOR CUFF, HTN, HLD, ARTHRITIS Surgeries: Yes (LITHOTRIPSY/CYSTOSCOPY/URETERAL STENTS, ROTATOR CUFF) Bladder Surgery, Gallbladder, Renal Respiratory: No Cardiac: Yes High Cholesterol, Hypertension Neurological: No Reproductive Disorders: No Sexually Transmitted Disease: No HIV/AIDS: No Genitourinary: Yes Kidney Stones Gastrointestinal: Yes Gastroesophageal Reflux, Diverticulosis, Esophagitis, Hiatal Hernia Musculoskeletal: Yes (PAIN IN KNEES AND FEET) Fibromyalgia Endocrine: No HEENT: No Loss of Vision: Denies Hearing Impairment: Denies Cancer: No Psychosocial: Yes Sleep Difficulties Integumentary: No Blood Disorders: No Adverse Reaction/Blood Tranf: No Family Medical History Reviewed Nursing Family Hx Esophageal cancer Gastroesophageal reflux disease 17 MOTHER G8 BROTHER Refl Physical Exam Vital Signs Vital Signs - First Documented 08/24/22 10:54 Temp 36.0 Pulse 85 Resp 14 B/P (MAP) 136/82 (100) Capillary Refill : Height, Weight, BMI Height: 5'11.00" Weight: 212lbs. 6.0oz. 96.106156ad; 28.48 BMI Method:Stated General Appearance: WD/WN, no apparent distress HEENT: PERRL/EOMI, pharynx normal Neck: full range of motion, normal inspection Cardiovascular: regular rate, rhythm, no murmur Respiratory: lungs clear, normal breath sounds Gastrointestinal: non tender, soft Male: normal genitalia, no hernia Back: CVA tenderness (R); No CVA tenderness (L) Extremities: non-tender, normal inspection Neurologic/Psychiatric: alert, oriented x 3 Skin: normal color, warm/dry Progress/Results/Core Measures Suspected Sepsis SIRS Temperature: Pulse: Respiratory Rate: Laboratory Tests 08/24/22 10:58: White Blood Count 8.3 Blood Pressure / Mean: Laboratory Tests 08/24/22 10:58: Creatinine 1.04, Platelet Count 252, Total Bilirubin 0.4 Results/Orders Lab Results Laboratory Tests Test 08/24/22 10:58 08/24/22 12:20 Range/Units White Blood Count 8.3 4.3-11.0 10^3/uL Red Blood Count 5.30 4.30-5.52 10^6/uL Hemoglobin 15.7 13.3-17.7 g/dL Hematocrit 47 40-54 % Mean Corpuscular Volume 88 80-99 fL Mean Corpuscular Hemoglobin 30 25-34 pg Mean Corpuscular Hemoglobin Concent 34 32-36 g/dL Red Cell Distribution Width 15.5 H 10.0-14.5 % Platelet Count 252 130-400 10^3/uL Mean Platelet Volume 10.7 9.0-12.2 fL Immature Granulocyte % (Auto) 0 % Neutrophils (%) (Auto) 85 H 42-75 % Lymphocytes (%) (Auto) 11 L 12-44 % Monocytes (%) (Auto) 3 0-12 % Eosinophils (%) (Auto) 0 0-10 % Basophils (%) (Auto) 0 0-10 % Neutrophils # (Auto) 7.0 1.8-7.8 10^3/uL Lymphocytes # (Auto) 0.9 L 1.0-4.0 10^3/uL Monocytes # (Auto) 0.2 0.0-1.0 10^3/uL Eosinophils # (Auto) 0.0 0.0-0.3 10^3/uL Basophils # (Auto) 0.0 0.0-0.1 10^3/uL Immature Granulocyte # (Auto) 0.0 0.0-0.1 10^3/uL Percent Immature Platelet Fraction 4.7 0.0-7.6 % Sodium Level 141 135-145 MMOL/L Potassium Level 4.5 3.6-5.0 MMOL/L Chloride Level 110 H 98-107 MMOL/L Carbon Dioxide Level 19 L 21-32 MMOL/L Anion Gap 12 5-14 MMOL/L Blood Urea Nitrogen 18 7-18 MG/DL Creatinine 1.04 0.60-1.30 MG/DL Estimat Glomerular Filtration Rate 85 BUN/Creatinine Ratio 17 Glucose Level 118 H 70-105 MG/DL Calcium Level 9.5 8.5-10.1 MG/DL Corrected Calcium 9.1 8.5-10.1 MG/DL Total Bilirubin 0.4 0.1-1.0 MG/DL Aspartate Amino Transf (AST/SGOT) 38 H 5-34 U/L Alanine Aminotransferase (ALT/SGPT) 42 0-55 U/L Alkaline Phosphatase 54 40-136 U/L C-Reactive Protein High Sensitivity 0.14 0.00-0.50 MG/DL Total Protein 8.0 6.4-8.2 GM/DL Albumin 4.5 3.2-4.5 GM/DL Urine Color YELLOW Urine Clarity CLEAR Urine pH 5.0 5-9 Urine Specific [place] >=1.030 1.016-1.022 Urine Protein NEGATIVE NEGATIVE Urine Glucose (UA) NEGATIVE NEGATIVE Urine Ketones NEGATIVE NEGATIVE Urine Nitrite NEGATIVE NEGATIVE Urine Bilirubin NEGATIVE NEGATIVE Urine Urobilinogen 0.2 < = 1.0 MG/DL Urine Leukocyte Esterase NEGATIVE NEGATIVE Urine RBC (Auto) NEGATIVE NEGATIVE Urine RBC NONE /HPF Urine WBC NONE /HPF Urine Squamous Epithelial Cells NONE /HPF Urine Crystals NONE /LPF Urine Bacteria NEGATIVE /HPF Urine Casts NONE /LPF Urine Mucus SMALL H /LPF Urine Culture Indicated NO My Orders Orders - CARLOS JIMENEZ MD Cbc With Automated Diff (08/24/22 11:11) Comprehensive Metabolic Panel (08/24/22 11:11) Hs C Reactive Protein (08/24/22 11:11) Ua Culture If Indicated (08/24/22 11:11) Ct Abd/Pelvis Wo(Kidney Stone) (08/24/22 11:11) Ed Iv/Invasive Line Start (08/24/22 11:11) Fentanyl Inj (Sublimaze Injection) (08/24/22 11:11) Ketorolac Injection (Toradol Injection) (08/24/22 11:11) Ondansetron Injection (Zofran Injectio (08/24/22 11:15) Ns Iv 1000 Ml (Sodium Chloride 0.9%) (08/24/22 11:11) Fentanyl Inj (Sublimaze Injection) (08/24/22 13:34) Medications Given in ED Current Medications Medications Dose Ordered Sig/Radhika Route Start Time Stop Time Status Last Admin Dose Admin Ondansetron HCl 4 mg ONCE ONCE IVP 08/24/22 11:15 08/24/22 11:16 DC 08/24/22 11:25 4 MG Vital Signs/I&O 08/24/22 10:54 Temp 36.0 Pulse 85 Resp 14 B/P (MAP) 136/82 (100) Capillary Refill : Progress Note : Progress Note Seen and evaluated. IV, labs, UA, fentanyl 50 mcg IV for pain, Toradol 30 mg IV for pain and Zofran 4 mg IV for nausea. We will get CT abdomen and pelvis kidney stone protocol given his proclivity to stones. Monitor patient. 1424: CT is obtained and does not show any acute findings. UA was finally obtained and that does not show any acute findings. I did have to repeat fentanyl x1. He was feeling little better. We did discuss his current findings and situation. This may be musculoskeletal in origin. I will prescribe outpatient muscle relaxer and he will continue use topical as well as ibuprofen and Tylenol. This was discussed with him and he agrees. He will try to rest tomorrow. Discharged home with return precautions. Patient verbalized understanding instructions and agreement with plan. Diagnostic Imaging Diagonstic Imaging: CT Plain Films/CT/US/NM/MRI: abdomen, pelvis Comments [facility], [place] NAME: CHERELLE FORMAN [facility] REC#: [id number] PT STATUS: REG ER : 1970 PHYSICIAN: CARLOS JIMENEZ MD ADMIT DATE: 08/24/22/ER Draft Date of Exam:08/24/22 CT ABD/PELVIS WO(KIDNEY STONE) PROCEDURE: CT urinary tract, rule out kidney stone. TECHNIQUE: Multiple contiguous axial images were obtained through the abdomen and pelvis without the use of intravenous contrast. Auto Exposure Controls were utilized during the CT exam to meet ALARA standards for radiation dose reduction. DATE: August 24, 2022. COMPARISON: CT abdomen pelvis June 17, 2021. INDICATION: 52-year-old male, left flank pain since Saturday. FINDINGS: There are limitations for evaluation of the abdominal organs, neoplastic processes, abscess, and limited evaluation of the vasculature relating to the lack of intravenous contrast. There are linear opacities in the right lower lobe adjacent of the spine compatible with atelectasis. The additional visualized portions of the lung bases are clear. The heart is not enlarged. There is no pericardial effusion. The liver is unremarkable in size and contour. The gallbladder is surgically absent. There is no biliary ductal dilation. The main pancreatic duct is not abnormally dilated. Limited noncontrast assessment of the pancreatic parenchyma is unremarkable. The spleen is normal in size. The adrenal glands are unremarkable. Limited noncontrast assessment of the renal parenchyma is unremarkable. The urinary collecting systems are not distended. There is no identified renal or ureteral stone. Urinary bladder is unremarkable. The intestinal tract is not distended. There is no evidence of acute appendicitis. There is no free intraperitoneal air. There is no drainable fluid collection. There is no free fluid in the abdomen or pelvis. There is no identified abnormally enlarged lymph node in the abdomen or pelvis which meets CT size criteria for adenopathy. There are multilevel degenerative changes of the spine. There is no identified acute bony abnormality. IMPRESSION: CT ABDOMEN AND PELVIS. 1. No acute abnormality in the abdomen or pelvis. Dictated on workstation # [id number] Dict: 08/24/22 1139 Trans: 08/24/22 1200 [facility] [place] [id number] Interpreted by: TIMOTHY MATA MD Electronically signed by: Departure Impression Primary Impression: Left flank pain Disposition: HOME, SELF-CARE Condition: Stable Departure-Patient Inst. Decision time for Depature: 14:28 Referrals: JEAN MARIE RIVERS APRN (PCP/Family) Primary Care Physician Patient Instructions: Flank Pain (DC) Add. Discharge Instructions: All discharge instructions reviewed with patient and/or family. Voiced understanding. Take medications as directed. Increase fluid intake. You may use ibuprofen 600 mg every 8 hours as needed for pain. You may use Tylenol/acetaminophen 1000 mg every 6-8 hours as needed for pain. Continue topical pain medicine as previous. Follow-up with your doctor early next week for recheck and further evaluation. Return for worse pain, fever, vomiting, weakness, breathing problems or other concerns as needed. Scripts Cyclobenzaprine HCl (Cyclobenzaprine HCl) 10 Mg Tablet 10 MG PO Q8H PRN for SPASMS, #15 TAB 0 Refills Prov: CARLOS JIMENEZ MD 08/24/22 ACRLOS JIMENEZ MD Aug 24, 2022 11:19
[2022-08-24 11:20] LABS: BASOPHILS % (AUTO) 0 % (0-10); EOSINOPHILS % (AUTO) 0 % (0-10); HEMOGLOBIN 15.7 g/dL (13.3-17.7)
[2022-08-24 11:22] LABS: ALBUMIN 4.5 GM/DL (3.2-4.5); HEMATOCRIT 47 % (40-54); LYMPHOCYTES # (AUTO) 0.9 10^3/uL (1.0-4.0); LYMPHOCYTES % (AUTO) 11 % (12-44); MEAN CORPUSCULAR HEMOGLOBIN 30 pg (25-34); MEAN CORPUSCULAR HGB CONC 34 g/dL (32-36); MEAN CORPUSCULAR VOLUME 88 fL (80-99); MEAN PLATELET VOLUME 10.7 fL (9.0-12.2); MONOCYTES # (AUTO) 0.2 10^3/uL (0.0-1.0); MONOCYTES % (AUTO) 3 % (0-12); NEUTROPHILS % (AUTO) 85 % (42-75); PLATELET COUNT 252 10^3/uL (130-400); WHITE BLOOD COUNT 8.3 10^3/uL (4.3-11.0)
[2022-08-24 11:23] LABS: POTASSIUM 4.5 MMOL/L (3.6-5.0)
[2022-08-24 11:24] LABS: CALCIUM 9.5 MG/DL (8.5-10.1)
[2022-08-24 11:27] LABS: BILIRUBIN,TOTAL 0.4 MG/DL (0.1-1.0)
[2022-08-24 11:29] LABS: CREATININE SERUM 1.04 MG/DL (0.60-1.30)
--- NOTE | 2022-08-24 12:00 | Diagnostic Imaging Report ---
PROCEDURE: CT urinary tract, rule out kidney stone. TECHNIQUE: Multiple contiguous axial images were obtained through the abdomen and pelvis without the use of intravenous contrast. Auto Exposure Controls were utilized during the CT exam to meet ALARA standards for radiation dose reduction. DATE: August 24, 2022. COMPARISON: CT abdomen pelvis June 17, 2021. INDICATION: 52-year-old male, left flank pain since [place]. FINDINGS: There are limitations for evaluation of the abdominal organs, neoplastic processes, abscess, and limited evaluation of the vasculature relating to the lack of intravenous contrast. There are linear opacities in the right lower lobe adjacent of the spine compatible with atelectasis. The additional visualized portions of the lung bases are clear. The heart is not enlarged. There is no pericardial effusion. The liver is unremarkable in size and contour. The gallbladder is surgically absent. There is no biliary ductal dilation. The main pancreatic duct is not abnormally dilated. Limited noncontrast assessment of the pancreatic parenchyma is unremarkable. The spleen is normal in size. The adrenal glands are unremarkable. Limited noncontrast assessment of the renal parenchyma is unremarkable. The urinary collecting systems are not distended. There is no identified renal or ureteral stone. Urinary bladder is unremarkable. The intestinal tract is not distended. There is no evidence of acute appendicitis. There is no free intraperitoneal air. There is no drainable fluid collection. There is no free fluid in the abdomen or pelvis. There is no identified abnormally enlarged lymph node in the abdomen or pelvis which meets CT size criteria for adenopathy. There are multilevel degenerative changes of the spine. There is no identified acute bony abnormality. IMPRESSION: CT ABDOMEN AND PELVIS. 1. No acute abnormality in the abdomen or pelvis. Dictated by: Dictated on workstation # [id number]
[2022-08-24 13:29] LABS: BILIRUBIN,URINE NEGATIVE (NEGATIVE); CLARITY,URINE CLEAR; COLOR,URINE YELLOW; GLUCOSE, URINE (UA) NEGATIVE (NEGATIVE); KETONES,URINE NEGATIVE (NEGATIVE); LEUKOCYTE ESTERASE ,URINE NEGATIVE (NEGATIVE); NITRITE,URINE NEGATIVE (NEGATIVE); PROTEIN,URINE NEGATIVE (NEGATIVE)
[2022-08-24 13:39] LABS: BACTERIA,URINE NEGATIVE /HPF
[2022-08-24] MEDS ORDERED: CYCL10TA25 PO (14:29)
[2022-08-24 14:46] VITALS: BP 130/83
== END 2022-08-24 14:45 | disposition home or self-care (01) ==
LOC: EDUNIT# 10:44 → ER 10:46
DX: R10.32 Left lower quadrant pain (principal); R11.0 Nausea; Z90.49 Acquired absence of other specified parts of digestive tract
CPT/HCPCS: 36415; 74176; 80053; 81000; 85025; 86141

== ENCOUNTER 2022-09-03 04:52 | Emergency (ER) | payer OTHER ==
[~2022-09-03 04:52] MED LIST changes: -TRAM-42 PO
[2022-09-03] MEDS ORDERED: KETOROLAC 30 MG/ML VIAL IVP STA (05:08)
[2022-09-03] MEDS ORDERED: fentaNYL INJ 100 MCG/2 ML AMP IVP STA ×2 (05:08→05:55)
[2022-09-03] MEDS ORDERED: NS IV 1000 ML 1,000 ML IV STA (05:08)
--- NOTE | 2022-09-03 05:34 | ED Abdominal Pain ---
General Chief Complaint: Abdominal/GI Problems Stated Complaint: ABD PAIN Nursing Triage Note: TO ED VIA POV AND AMBULATORY TO ROOM 6 WITH C/O LEFT LOWER ABD/GROIN PAIN. SEEN RECENTLY FOR ABD PAIN IN THIS ER AND STATES HAS HAD CONTINUED PAIN SINCE, BUT IS SIGNIFICANTLY WORSE THIS MORNING. Source of Information: Patient Exam Limitations: No Limitations (CARLOS JIMENEZ MD) History of Present Illness Date Seen by Provider: Sep 03, 2022 Time Seen by Provider: 05:01 Initial Comments Here with report of left lower quadrant abdominal/groin pain. He was seen by me at the last visit on August 24 with similar pain. At that time we did work-up including CT scan for kidney stones which were negative. No other acute findings noted at that time. We did prescribe topical therapy and dadw-xnc-oxbwbxo therapy as well as muscle relaxers. He was doing better until this morning when things got much worse. States that it actually got worse yesterday evening after bowel movement. Denies blood in his urine or stool. Denies nausea or vomiting. Denies fever or chills. Does have history of diverticular disease and wonders if that may be part of it. Denies any lifting injury or groin strain otherwise. Timing/Duration: Getting Worse, Other (2 weeks) Severity/Quality: Moderate, Severe, Aching Location: LLQ Radiation: Groin Activities at Onset: None Modifying Factors: Worsens With Defecating Associated Symptoms: No Chest Pain, No Fever/Chills, No Nausea/Vomiting, No Swelling/Mass in Abdomen, No Weakness (CARLOS JIMENEZ MD) Allergies and Home Medications Allergies Coded Allergies: No Known Drug Allergies (Verified , 06/21/21) Patient Home Medication List Home Medication List Reviewed: Yes (CARLOS JIMENEZ MD) Bupropion HCl (Bupropion HCl Sr) 150 Mg Tablet.er, 150 MG PO BID, (Reported) Entered as Reported by: JULIO CESAR PELLETIER on 06/20/21 1235 Clonazepam (Clonazepam) 1 Mg Tablet, 1 MG PO for SLEEP, (Reported) Entered as Reported by: CIARA MCCONNELL on 06/18/21 1500 Cyclobenzaprine HCl (Cyclobenzaprine HCl) 10 Mg Tablet, 10 MG PO Q8H PRN for SPASMS Prescribed by: CARLOS JIMENEZ on 08/24/22 1429 Dextroamphetamine/Amphetamine (Adderall 30 mg Tablet) 30 Mg Tablet, 30 MG PO BID, (Reported) Entered as Reported by: CIARA MCCONNELL on 06/18/21 1501 Duloxetine HCl (Cymbalta) 60 Mg Capsule.dr, 60 MG PO BID, (Reported) Entered as Reported by: CIARA MCCONNELL on 06/18/21 1501 Metoprolol Succinate (Metoprolol Succinate) 50 Mg Tab.er.24h, 50 MG PO HS, (Reported) Entered as Reported by: JULIO CESAR PELLETIER on 06/20/21 1235 Nabumetone (Nabumetone) 750 Mg Tablet, 750 MG PO BID, (Reported) Entered as Reported by: CIARA MCCONNELL on 06/18/21 1503 Omeprazole (Omeprazole) 20 Mg Tablet.dr, 20 MG PO DAILY Prescribed by: INEZ ORDAZ on 06/21/21 1009 Pantoprazole Sodium (Pantoprazole Sodium) 40 Mg Tablet.dr, 40 MG PO DAILY, (Reported) Entered as Reported by: JULIO CESAR PELLETIER on 06/20/21 1235 Pregabalin (Lyrica) 150 Mg Capsule, 150 MG PO BID, (Reported) Entered as Reported by: CIARA MCCONNELL on 06/18/21 1503 Rosuvastatin Calcium (Rosuvastatin Calcium) 10 Mg Tablet, 10 MG PO HS, (Reported) Entered as Reported by: JULIO CESAR PELLETIER on 06/20/21 1235 Sucralfate (Carafate) 1 Gm Tablet, 1 GM PO QID, (Reported) Entered as Reported by: JULIO CESAR PELLETIER on 06/20/21 1235 Temazepam (Temazepam) 30 Mg Capsule, 30 MG PO HS, (Reported) Entered as Reported by: JULIO CESAR PELLETIER on 06/20/21 1235 Zolpidem Tartrate (Ambien) 10 Mg Tablet, 10 MG PO for SLEEP, (Reported) Entered as Reported by: CIARA MCCONNELL on 06/18/21 1500 Review of Systems Review of Systems Constitutional: see HPI; No chills, No fever EENTM: No Symptoms Reported Respiratory: Denies Cough, Denies Shortness of Air Cardiovascular: Denies Chest Pain, Denies Edema Gastrointestinal: Denies Diarrhea, Denies Nausea, Denies Rectal Bleeding, Denies Vomiting Genitourinary: Denies Hematuria, Denies Pain Musculoskeletal: No back pain; muscle pain Skin: No change in color, No lesions Psychiatric/Neurological: No Symptoms Reported (CARLOS JIMENEZ MD) All Other Systems Reviewed Negative Unless Noted: Yes (CARLOS JIMENEZ MD) Past Lgnmeuj-Muwwki-Tysugd Hx Patient Social History Tobacco Use?: No Substance use?: No Alcohol Use?: Yes Alcohol Frequency: Once in a while (CARLOS JIMENEZ MD) Immunizations Up To Date Tetanus Booster (TDap): Unknown First/Initial COVID19 Vaccinat: YES Second COVID[address]: YES Third COVID19 Vaccination Date: YES (CARLOS JIMENEZ MD) Seasonal Allergies Seasonal Allergies: No (CARLOS JIMENEZ MD) Past Medical History Surgery/Hospitalization HX: GERD, KIDNEY STONES, CYSTOSCOPY, ROTATOR CUFF, HTN, HLD, ARTHRITIS Surgeries: Yes (LITHOTRIPSY/CYSTOSCOPY/URETERAL STENTS, ROTATOR CUFF) Bladder Surgery, Gallbladder, Renal Respiratory: No Cardiac: Yes High Cholesterol, Hypertension Neurological: No Reproductive Disorders: No Sexually Transmitted Disease: No HIV/AIDS: No Genitourinary: Yes Kidney Stones Gastrointestinal: Yes Gastroesophageal Reflux, Diverticulosis, Esophagitis, Hiatal Hernia Musculoskeletal: Yes (PAIN IN KNEES AND FEET) Fibromyalgia Endocrine: No HEENT: No Loss of Vision: Denies Hearing Impairment: Denies Cancer: No Psychosocial: Yes Sleep Difficulties Integumentary: No Blood Disorders: No Adverse Reaction/Blood Tranf: No (CARLOS JIMENEZ MD) Family Medical History Reviewed Nursing Family Hx (CARLOS JIMENEZ MD) Esophageal cancer Gastroesophageal reflux disease 19 MOTHER G8 BROTHER Refl Physical Exam Vital Signs Vital Signs - First Documented 09/03/22 05:00 Temp 36.4 Pulse 77 Resp 20 B/P (MAP) 138/100 (113) Pulse Ox 98 O2 Delivery Room Air (URBAN WILLINGHAM MD) Vital Signs Capillary Refill : Less Than 3 Seconds (CARLOS JIMENEZ MD) Height/Weight/BMI Height: 5'11.00" Weight: 212lbs. 6.0oz. [id number]; 28.48 BMI Method:Stated General Appearance: WD/WN, mild distress HEENT: PERRL/EOMI, pharynx normal Neck: full range of motion, supple Respiratory: lungs clear, normal breath sounds Cardiovascular: regular rate, rhythm, no murmur Gastrointestinal: soft; No guarding, No rebound; tenderness (Left lower quadrant) Extremities: non-tender, normal inspection Back: normal inspection, no CVA tenderness, no vertebral tenderness Neurologic/Psychiatric: alert, oriented x 3 Skin: normal color, warm/dry (CARLOS JIMENEZ MD) Progress/Results/Core Measures Results/Orders Lab Results Laboratory Tests Test 09/03/22 05:20 Range/Units White Blood Count 5.1 4.3-11.0 10^3/uL Red Blood Count 5.49 4.30-5.52 10^6/uL Hemoglobin 16.1 13.3-17.7 g/dL Hematocrit 48 40-54 % Mean Corpuscular Volume 87 80-99 fL Mean Corpuscular Hemoglobin 29 25-34 pg Mean Corpuscular Hemoglobin Concent 34 32-36 g/dL Red Cell Distribution Width 14.9 H 10.0-14.5 % Platelet Count 289 130-400 10^3/uL Mean Platelet Volume 10.3 9.0-12.2 fL Immature Granulocyte % (Auto) 0 % Neutrophils (%) (Auto) 55 42-75 % Lymphocytes (%) (Auto) 34 12-44 % Monocytes (%) (Auto) 7 0-12 % Eosinophils (%) (Auto) 3 0-10 % Basophils (%) (Auto) 1 0-10 % Neutrophils # (Auto) 2.8 1.8-7.8 10^3/uL Lymphocytes # (Auto) 1.7 1.0-4.0 10^3/uL Monocytes # (Auto) 0.4 0.0-1.0 10^3/uL Eosinophils # (Auto) 0.2 0.0-0.3 10^3/uL Basophils # (Auto) 0.0 0.0-0.1 10^3/uL Immature Granulocyte # (Auto) 0.0 0.0-0.1 10^3/uL Sodium Level 140 135-145 MMOL/L Potassium Level 4.2 3.6-5.0 MMOL/L Chloride Level 108 H 98-107 MMOL/L Carbon Dioxide Level 20 L 21-32 MMOL/L Anion Gap 12 5-14 MMOL/L Blood Urea Nitrogen 19 H 7-18 MG/DL Creatinine 1.01 0.60-1.30 MG/DL Estimat Glomerular Filtration Rate 88 BUN/Creatinine Ratio 19 Glucose Level 120 H 70-105 MG/DL Calcium Level 9.7 8.5-10.1 MG/DL Corrected Calcium 9.5 8.5-10.1 MG/DL Total Bilirubin 0.3 0.1-1.0 MG/DL Aspartate Amino Transf (AST/SGOT) 20 5-34 U/L Alanine Aminotransferase (ALT/SGPT) 35 0-55 U/L Alkaline Phosphatase 67 40-136 U/L C-Reactive Protein High Sensitivity 0.09 0.00-0.50 MG/DL Total Protein 7.1 6.4-8.2 GM/DL Albumin 4.2 3.2-4.5 GM/DL (URBAN WILLINGHAM MD) Medications Given in ED Current Medications Medications Dose Ordered Sig/Radhika Route Start Time Stop Time Status Last Admin Dose Admin Iohexol 100 ml ONCE ONCE IV 09/03/22 06:30 09/03/22 06:31 DC 09/03/22 06:25 80 ML Sodium Chloride 10 ml NEEDED PRN IV 09/03/22 06:30 09/03/22 06:25 10 ML Sodium Chloride 100 ml ONCE ONCE IV 09/03/22 06:30 09/03/22 06:31 DC 09/03/22 06:25 80 ML (URBAN WILLINGHAM MD) Vital Signs/I&O 09/03/22 05:00 Temp 36.4 Pulse 77 Resp 20 B/P (MAP) 138/100 (113) Pulse Ox 98 O2 Delivery Room Air (URBAN WILLINGHAM MD) Blood Pressure Mean: 113 Progress Progress Note : Progress Note Seen and evaluated. I did review previous chart including CT scan. We will get IV and check labs. Normal saline 1 L bolus, fentanyl 50 mcg IV and Toradol 30 mg IV ordered. Previous CT scan was noncontrast looking for stones. Patient may benefit from contrast CT scan. We will see what labs look like before making that decision. This was discussed with the patient who agrees. I did review colonoscopy findings from 2014 which showed no polyps but did have some diverticulosis without diverticulitis at that time. Monitor patient. 0610: Care transferred to Dr. Willingham. CT abdomen and pelvis with contrast ordered. Patient did get repeat dose of fentanyl 50 mcg IV. He is doing better. Bedside checkout performed. (CARLOS JIMENEZ MD) Progress Note #1: Time: 06:26 Progress Note I assumed care of this patient from Dr. Jimenez at shift change. Bedside report received. Labs reviewed. Labs were unremarkable. Patient was reexamined and found to have pain with deep palpation of the left lower quadrant. No significant tenderness to percussion or rotation of the hip. No tenderness over the hip joint. No significant pain with extension at the hip. No rashes to suggest shingles or infection. Plan discussed to repeat CT scan with contrast dye. Patient is agreeable to this plan. Progress Note #2: Time: 07:[address] scan was unremarkable. Discharge instructions were reviewed with patient. See discharge instructions for further discussion. (URBAN WILLINGHAM MD) Diagnostic Imaging Diagonstic Imaging: CT Plain Films/CT/US/NM/MRI: abdomen, pelvis Comments CT viewed by me and report reviewed. See report below: NAME: CHERELLE FORMAN [facility] REC#: [id number] PT STATUS: REG ER : 1970 PHYSICIAN: CARLOS JIMENEZ MD ADMIT DATE: 09/03/22/ER Signed Date of Exam:09/03/22 CT ABDOMEN/PELVIS W EXAMINATION: CT abdomen and pelvis with intravenous contrast. TECHNIQUE: Multiple contiguous axial images were obtained through the abdomen and pelvis after the uneventful administration of intravenous contrast. All CT scans use one or more of the following dose optimizing techniques: automated exposure control, MA and/or KvP adjustment based on patient size and exam type or iterative reconstruction. HISTORY: LLQ abd pain COMPARISON: 08/24/2022 FINDINGS: Lung bases: The lung bases are clear. Solid organs: The liver is normal without focal lesion. The gallbladder is surgically absent. There is no biliary ductal dilation. Pancreas is normal. Spleen is normal. Adrenal glands are normal. The kidneys are normal without hydronephrosis. Bowel: The stomach and small bowel are normal without obstruction. The colon and appendix are normal. Peritoneum: There is no intraperitoneal free fluid or free air. No suspicious lymphadenopathy. Vasculature: Normal without aneurysm. Musculoskeletal: Degenerative changes of the spine without suspicious osseous lesion or compression fracture. Pelvis: The prostate gland is normal. The urinary bladder is normal. IMPRESSION: 1. No acute abnormality in the abdomen or pelvis. Dictated by: Dictated on workstation # [id number] Dict: 09/03/22629 Trans: 09/03/22709 CVB [id number] Interpreted by: ONEL MOHAN DO Electronically signed by: ONEL MOHAN DO 09/03/22709 (URBAN WILLINGHAM MD) Departure Impression Primary Impression: Left lower quadrant pain Disposition: HOME, SELF-CARE Condition: Stable Departure-Patient Inst. Decision time for Depature: 07:15 (URBAN WILLINGHAM MD) Referrals: JEAN MARIE RIVERS APRN (PCP/Family) Primary Care Physician Patient Instructions: Abdominal Pain, Adult ED, Diverticulitis Add. Discharge Instructions: Drink plenty of clear liquids and adhere to a clear liquid diet for the rest of the day. If you are feeling improved in the morning, you may gradually advance your diet with small quantities of bland food as tolerated. You may take ibuprofen (Advil or Motrin) up to 600 mg every 6 hours, as well as Tylenol (acetaminophen) up to 1000 mg every 6 hours as needed for pain. For pain not controlled by ldom-rso-zfdujvr medications, add Ultram (tramadol) as prescribed. This medication may cause some drowsiness and constipation, so use with caution. Do not drive or operate machinery after taking this medication. You may wish to use a stool softener such as Colace when you take Ultram to avoid constipation as well. Make a follow-up appointment with Dr. Ordaz and your primary care provider soon as possible. At those appointments you may discuss possibilities for further work-up which may include repeat endoscopy (colonoscopy), MRI of your thoracic spine to evaluate for radicular causes of pain, or other work-up as may deemed appropria te at that time. Return to the emergency room if you are having worsening of pain despite following these instructions or if you develop new symptoms such as bloody stools, vomiting, fever, etc. All discharge instructions reviewed with patient and/or family. Voiced understanding. Scripts Tramadol HCl (Ultram) 50 Mg Tablet 50 MG PO Q6H PRN for PAIN-BREAKTHROUGH, #10 TAB Prov: URBAN WILLINGHAM MD 09/03/22 Copy Copies To 1: INEZ ORDAZ MD, TIMOTHY D MD Sep 03, 2022 05:34 URBAN WILLINGHAM MD Sep 03, 2022 06:27
[2022-09-03 05:38] LABS: BASOPHILS % (AUTO) 1 % (0-10); EOSINOPHILS # (AUTO) 0.2 10^3/uL (0.0-0.3); EOSINOPHILS % (AUTO) 3 % (0-10); HEMATOCRIT 48 % (40-54); HEMOGLOBIN 16.1 g/dL (13.3-17.7); LYMPHOCYTES # (AUTO) 1.7 10^3/uL (1.0-4.0); LYMPHOCYTES % (AUTO) 34 % (12-44); MEAN CORPUSCULAR HEMOGLOBIN 29 pg (25-34); MEAN CORPUSCULAR HGB CONC 34 g/dL (32-36); MEAN CORPUSCULAR VOLUME 87 fL (80-99); MEAN PLATELET VOLUME 10.3 fL (9.0-12.2); MONOCYTES # (AUTO) 0.4 10^3/uL (0.0-1.0); MONOCYTES % (AUTO) 7 % (0-12); NEUTROPHILS # (AUTO) 2.8 10^3/uL (1.8-7.8); NEUTROPHILS % (AUTO) 55 % (42-75); PLATELET COUNT 289 10^3/uL (130-400); WHITE BLOOD COUNT 5.1 10^3/uL (4.3-11.0)
[2022-09-03 05:52] LABS: ALBUMIN 4.2 GM/DL (3.2-4.5)
[2022-09-03 05:53] LABS: POTASSIUM 4.2 MMOL/L (3.6-5.0)
[2022-09-03 05:54] LABS: CALCIUM 9.7 MG/DL (8.5-10.1)
[2022-09-03 05:55] LABS: TOTAL PROTEIN 7.1 GM/DL (6.4-8.2)
[2022-09-03 05:57] LABS: BILIRUBIN,TOTAL 0.3 MG/DL (0.1-1.0)
[2022-09-03 05:59] LABS: CREATININE SERUM 1.01 MG/DL (0.60-1.30)
[2022-09-03] MEDS ORDERED: CATHETER FLUSH 10 ML SYR IV PRN (06:30)
[2022-09-03] MEDS ORDERED: IOHEXOL 350 MG/ML 100 ML (OMNIPAQUE 350) VIAL IV ONE (06:30)
[2022-09-03] MEDS ORDERED: NS 100 ML (IVPB) BAG IV ONE (06:30)
--- NOTE | 2022-09-03 06:40 | Diagnostic Imaging Report ---
EXAMINATION: CT abdomen and pelvis with intravenous contrast. TECHNIQUE: Multiple contiguous axial images were obtained through the abdomen and pelvis after the uneventful administration of intravenous contrast. All CT scans use one or more of the following dose optimizing techniques: automated exposure control, MA and/or KvP adjustment based on patient size and exam type or iterative reconstruction. HISTORY: LLQ abd pain COMPARISON: 08/24/2022 FINDINGS: Lung bases: The lung bases are clear. Solid organs: The liver is normal without focal lesion. The gallbladder is surgically absent. There is no biliary ductal dilation. Pancreas is normal. Spleen is normal. Adrenal glands are normal. The kidneys are normal without hydronephrosis. Bowel: The stomach and small bowel are normal without obstruction. The colon and appendix are normal. Peritoneum: There is no intraperitoneal free fluid or free air. No suspicious lymphadenopathy. Vasculature: Normal without aneurysm. Musculoskeletal: Degenerative changes of the spine without suspicious osseous lesion or compression fracture. Pelvis: The prostate gland is normal. The urinary bladder is normal. IMPRESSION: 1. No acute abnormality in the abdomen or pelvis. Dictated by: Dictated on workstation # [id number]
[2022-09-03] MEDS ORDERED: TRAM-42 PO (07:29)
[2022-09-03 07:47] VITALS: BP 139/92
== END 2022-09-03 07:47 | disposition home or self-care (01) ==
LOC: EDUNIT# 04:52 → ER 04:53
DX: R10.32 Left lower quadrant pain (principal); K57.90 Diverticulosis of intestine, part unspecified, without perforation or abscess without bleeding; Z87.19 Personal history of other diseases of the digestive system; Z87.442 Personal history of urinary calculi; Z98.890 Other specified postprocedural states
CPT/HCPCS: 36415; 74177; 80053; 85025; 86141

== ENCOUNTER → 2022-09-03 | Outpatient (CLI) | payer OTHER ==
[~2022-09-03] MED LIST changes: +CYCL10TA25 PO; +TRAM-42 PO
[2022-09-03 10:04] LABS: AMYLASE 47 U/L (25-125); LIPASE 19 U/L (8-78)
== END ==
LOC: LABNPT 05:20
DX: R10.9 Unspecified abdominal pain (principal)
CPT/HCPCS: 82150; 83690

== ENCOUNTER 2023-03-26 10:40 | Emergency (ER) | payer OTHER ==
[~2023-03-26 10:40] MED LIST changes: +TRAM-42 PO
--- NOTE | 2023-03-26 10:58 | ED Upper Extremity ---
General Chief Complaint: Upper Extremity Stated Complaint: FALL | BILAT SHOULDER PAIN Source: patient Exam Limitations: no limitations History of Present Illness Date Seen by Provider: March 26, 2023 Time Seen by Provider: 10:46 Initial Comments 52-year-old male presents emerged department today for bilateral shoulder pain. He was painting his pool yesterday and fell a couple times onto his outstretched arms. He had increased pain today. He feels as though the right one may have been dislocated prior to arrival but he lifted and may have "popped back in." He describes pain with any movement above 90 degrees bilaterally. No pain here at baseline. No bony tenderness. No weakness numbness or tingling. All other systems reviewed and negative except documented per HPI. Voice recognition software was used to help create this chart Allergies and Home Medications Allergies Coded Allergies: No Known Drug Allergies (Verified , 06/21/21) Patient Home Medication List Home Medication List Reviewed: Yes Bupropion HCl (Bupropion HCl Sr) 150 Mg Tablet.er, 150 MG PO BID, (Reported) Entered as Reported by: JULIO CESAR PELLETIER on 06/20/21 1235 Clonazepam (Clonazepam) 1 Mg Tablet, 1 MG PO for SLEEP, (Reported) Entered as Reported by: CIARA MCCONNELL on 06/18/21 1500 Cyclobenzaprine HCl (Cyclobenzaprine HCl) 10 Mg Tablet, 10 MG PO Q8H PRN for SPASMS Prescribed by: CARLOS JIMENEZ on 08/24/22 1429 Dextroamphetamine/Amphetamine (Adderall 30 mg Tablet) 30 Mg Tablet, 30 MG PO BID, (Reported) Entered as Reported by: CIARA MCCONNELL on 06/18/21 1501 Duloxetine HCl (Cymbalta) 60 Mg Capsule.dr, 60 MG PO BID, (Reported) Entered as Reported by: CIARA MCCONNELL on 06/18/21 1501 Metoprolol Succinate (Metoprolol Succinate) 50 Mg Tab.er.24h, 50 MG PO HS, (Reported) Entered as Reported by: JULIO CESAR PELLETIER on 06/20/21 1235 Nabumetone (Nabumetone) 750 Mg Tablet, 750 MG PO BID, (Reported) Entered as Reported by: CIARA MCCONNELL on 06/18/21 1503 Omeprazole (Omeprazole) 20 Mg Tablet.dr, 20 MG PO DAILY Prescribed by: INEZ ONEIL on 06/21/21 1009 Pantoprazole Sodium (Pantoprazole Sodium) 40 Mg Tablet.dr, 40 MG PO DAILY, (Reported) Entered as Reported by: JULIO CESAR PELLETIER on 06/20/21 1235 Pregabalin (Lyrica) 150 Mg Capsule, 150 MG PO BID, (Reported) Entered as Reported by: CIARA MCCONNELL on 06/18/21 1503 Rosuvastatin Calcium (Rosuvastatin Calcium) 10 Mg Tablet, 10 MG PO HS, (Reported) Entered as Reported by: JULIO CESAR PELLETIER on 06/20/21 1235 Sucralfate (Carafate) 1 Gm Tablet, 1 GM PO QID, (Reported) Entered as Reported by: JULIO CESAR PELLETIER on 06/20/21 1235 Temazepam (Temazepam) 30 Mg Capsule, 30 MG PO HS, (Reported) Entered as Reported by: JULIO CESAR PELLETIER on 06/20/21 1235 Tramadol HCl (Ultram) 50 Mg Tablet, 50 MG PO Q6H PRN for PAIN-BREAKTHROUGH Prescribed by: URBAN JEAN on 09/03/22 0730 Zolpidem Tartrate (Ambien) 10 Mg Tablet, 10 MG PO for SLEEP, (Reported) Entered as Reported by: CIARA MCCONNELL on 06/18/21 1500 Review of Systems Constitutional: see HPI Past Iyoyrhb-Qvnscu-Qhzjbi Hx Patient Social History Tobacco Use?: No Use of E-Cig and/or Vaping dev: No Substance use?: No Alcohol Use?: Yes Alcohol Frequency: Once in a while Pt feels they are or have been: No Immunizations Up To Date Tetanus Booster (TDap): Unknown First/Initial COVID19 Vaccinat: YES Second COVID[address]: YES Third COVID19 Vaccination Date: YES Seasonal Allergies Seasonal Allergies: No Past Medical History Surgery/Hospitalization HX: GERD, KIDNEY STONES, CYSTOSCOPY, ROTATOR CUFF, HTN, HLD, ARTHRITIS, L BICEP Surgeries: Yes (LITHOTRIPSY/CYSTOSCOPY/URETERAL STENTS, ROTATOR CUFF) Bladder Surgery, Gallbladder, Renal Respiratory: No Cardiac: Yes High Cholesterol, Hypertension Neurological: No Reproductive Disorders: No Sexually Transmitted Disease: No HIV/AIDS: No Genitourinary: Yes Kidney Stones Gastrointestinal: Yes Gastroesophageal Reflux, Diverticulosis, Esophagitis, Hiatal Hernia Musculoskeletal: Yes (PAIN IN KNEES AND FEET) Fibromyalgia Endocrine: No HEENT: No Loss of Vision: Denies Hearing Impairment: Denies Cancer: No Psychosocial: Yes Sleep Difficulties Integumentary: No Blood Disorders: No Adverse Reaction/Blood Tranf: No Family Medical History Esophageal cancer Gastroesophageal reflux disease 19 MOTHER G8 BROTHER Refl Physical Exam Vital Signs Capillary Refill : Height, Weight, BMI Height: 5'11.00" Weight: 212lbs. 6.0oz. 96.421409tj; 28.48 BMI Method:Stated General Appearance: WD/WN, no apparent distress HEENT: normal ENT inspection, pharynx normal Neck: non-tender, supple Cardiovascular: regular rate, rhythm, no murmur Respiratory: chest non-tender, lungs clear, normal breath sounds, no respiratory distress, no accessory muscle use Shoulder: normal inspection (There is pain with movement above 90 degrees. No pain below this. No bony tenderness. Neurovascular and sensory intact. Axillary sensation intact bilaterally.) Elbow/Forearm: normal inspection, non-tender, no evidence of injury, Right, Left Wrist: Yes normal inspection, Yes non-tender, Yes no evidence of injury Hand: normal inspection, non-tender, no evidence of injury, Bilateral Neurologic/Tendon: normal sensation, normal motor functions, normal tendon functions Skin: normal color, warm/dry Departure Impression Primary Impression: Shoulder pain Qualified Codes: M25.511 - Pain in right shoulder; M25.512 - Pain in left shoulder Disposition: 01 HOME, SELF-CARE Condition: Stable Departure-Patient Inst. Referrals: JEAN MARIE RIVERS APRN (PCP/Family) Primary Care Physician Patient Instructions: Joint Pain Add. Discharge Instructions: Use anti-inflammatory medications as needed. Add Tylenol to this if necessary. Follow-up with Dr. Ruiz should your symptoms continue. All discharge instructions reviewed with patient and/or family. Voiced understanding. DELORES BUSTAMANTE DO March 26, 2023 10:58
[2023-03-26 11:08] VITALS: BP 142/100
== END 2023-03-26 11:08 | disposition home or self-care (01) ==
LOC: EDUNIT# 10:40 → ER 10:41
DX: M25.511 Pain in right shoulder (principal); M25.512 Pain in left shoulder; W19.XXXA Unspecified fall, initial encounter; Y92.34 Swimming pool (public) as the place of occurrence of the external cause
CPT/HCPCS: 99281